=== PATIENT | male | born 1965 | race Caucasian/White ===

== ENCOUNTER 2017-02-05 22:13 | Emergency (ER) | payer OTHER ==
[2017-02-06] MEDS ORDERED: IPRATROPIUM-ALBUTEROL 3 ML NEB INHALATION STA (00:01)
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
--- NOTE | 2017-02-06 00:35 | XR ---
EXAM: XR Chest, 2 Views. CLINICAL HISTORY: Reason: Pain TECHNIQUE: Frontal and lateral views of the chest. COMPARISON: 09/03/15 FINDINGS: Lungs: Stable. No consolidation. Pleural space: Unremarkable. No pneumothorax. Heart: Heart size is stable and within normal limits. Mediastinum: Mediastinal contours are stable including mild aortic ectasia. Bones/joints: Bones are stable including multilevel degenerative changes. IMPRESSION: No new acute intrathoracic abnormality is seen.
[2017-02-06] MEDS ORDERED: methylPREDNISolone SOD SUCCI 125 MG/2 ML VIAL IV STA (00:44)
[2017-02-06] MEDS ORDERED: SODIUM CHLORIDE 0.9% 1,000 ML IV ONE (00:55)
[2017-02-06] MEDS ORDERED: PROMETHAZ-COD 6.25-10 MG/5 ML 5 ML CUP PO STA (00:57)
[2017-02-06 01:15] LABS: Basophils % (A) 1 %; CH 31.1; CHCM 34.9; Eosinophils # (A) 0.3 k/uL (0-0.7); Eosinophils % (A) 4 %; HCT 41.2 % (39.0-53.0); HGB 14.1 gm/dL (13.0-17.5); Luc # (Auto) 0.23; Luc % (Auto) 4; Lymphocytes # (A) 2.8 k/uL (1.0-4.8); Lymphocytes % (A) 43 %; MCH 30.6 pg (25.0-35.0); MCHC 34.2 g/dL (31.0-37.0); MCV 89.5 fL (80.0-100.0); Monocytes # (A) 0.4 k/uL (0-1.0); Monocytes % (A) 6 %; Neutrophils # (A) 2.8 k/uL (1.3-7.7); Neutrophils % (A) 43 %; RDW 12.9 % (11.5-15.5); WBC 6.7 k/uL (3.8-10.6); WBC (Perox) 6.22
[2017-02-06 01:29] LABS: Partial Thromboplastin Time 23.6 sec (22.0-30.0); Prothrombin Time 9.9 sec (9.0-12.0)
[2017-02-06 01:39] LABS: Anion Gap 8 mmol/L; Blood Urea Nitrogen 21 mg/dL (9-20); Calcium 9.8 mg/dL (8.4-10.2); Carbon Dioxide 27 mmol/L (22-30); Chloride 107 mmol/L (98-107); Glucose 95 mg/dL (74-99); Magnesium 2.1 mg/dL (1.6-2.3); Non-African American GFR(MDRD) >60 (>60 ml/min/1.73 sqM); Potassium 3.9 mmol/L (3.5-5.1); Sodium 142 mmol/L (137-145)
[2017-02-06 02:11] VITALS: BP 139/78; PULSE 78; RESP 20; TEMP 98.2
== END 2017-02-06 02:11 | disposition home or self-care (01) ==
LOC: EC 22:13
DX: R05 Cough (principal); R09.81 Nasal congestion; I10 Essential (primary) hypertension; Z79.899 Other long term (current) drug therapy
CPT/HCPCS: 36415; 94640; 85379; 80048; 83735; 85025; 85610; 85730; 87040; 71020; 99284; 96374; 96361; J2930

== ENCOUNTER 2017-10-24 10:03 | Day surgery (SDC) | payer OTHER ==
[2017-10-19 16:32] VITALS: BMI 32.3
[~2017-10-24 10:03] MED LIST: DEXAMETHASONE SOD PHOSPHATE 10 MG/ML 1 ML VIAL IV ONE; HEPARIN SODIUM,PORCINE 5,000 UNIT/ML 1 ML VIAL SQ ONE; HYDROmorphone 0.5 MG/0.5 ML SYRINGE IVP PRN; LACTATED RINGERS 1,000 ML IV SCH; LIDOCAINE 1% 20 ML VIAL (10MG/ML) FOR IV START INTRADERMA PRN; MIDAZOLAM 2 MG/2 ML VIAL IV PRN; ONDANSETRON 4 MG/2 ML VIAL IVP ONE; SCOPOLAMINE 1.5MG/72HR PATCH TRANSDERM ONE; ceFAZolin IN SWFI 2 GM/20 ML SYRINGE IVP ONE
[2017-10-24 10:13] VITALS: TEMP 97.5
[2017-10-24] MEDS ORDERED: LACTATED RINGERS 1,000 ML IV ONE ×3 (10:26→12:29)
--- NOTE | 2017-10-24 10:57 | P.GSHP ---
History of Present Illness H&P Date: 10/24/17 Chief Complaint: Incarcerated right inguinal hernia This a 52-year-old male who presents today for laparoscopic robotic-assisted repair of incarcerated right inguinal hernia. Patient's had a hernia for several years. He states the mass has gotten bigger in his groin. Past Medical History Past Medical History: Asthma, Hypertension, Sleep Apnea/CPAP/BIPAP Additional Past Medical History / Comment(s): AORTIC ANEURYSM, C-PAP MACHINE, ENVIRONMENTAL ALLERGIES., RIGHT INGUINAL HERNIA. History of Any Multi-Drug Resistant Organisms: None Reported Past Surgical History: Appendectomy, Hernia Repair, Orthopedic Surgery Additional Past Surgical History / Comment(s): ORIF RT ARM & REMOVAL OF HARDWARE.,EGD, COLONOSCOPY, HIATAL HERNIA -AUDREY. , UMBILICAL HERNIA, ABDOMINAL HERNIA Past Anesthesia/Blood Transfusion Reactions: Previous Problems w/ Anesthesia, Postoperative Nausea & Vomiting (PONV) Additional Past Anesthesia/Blood Transfusion Reaction / Comment(s): DIFFICULTY WAKING UP. Past Psychological History: No Psychological Hx Reported Smoking Status: Never smoker Past Alcohol Use History: Occasional Past Drug Use History: None Reported - Past Family History Sister(s) Family Medical History: Cancer Additional Family Medical History / Comment(s): BREAST CANCER Mother Family Medical History: Cancer Additional Family Medical History / Comment(s): BREAST Father Family Medical History: Cancer Medications and Allergies Home Medications Medication Instructions Recorded Confirmed Type Losartan/Hydrochlorothiazide 1 each PO DAILY 10/19/17 10/24/17 History [Losartan-Hctz 100-12.5 mg Tab] Multivitamins, Thera [Multivitamin 1 tab PO DAILY 10/19/17 10/19/17 History (formulary)] Twist Inhaler (Unknown Med) 1 dose INHALATION DAILY PRN 10/19/17 10/24/17 History Allergies Allergy/AdvReac Type Severity Reaction Status Date / Time No Known Allergies Allergy Verified 10/19/17 09:31 Surgical - Exam Vital Signs Temp Resp 97.5 F L 18 10/24/17 10:11 10/24/17 10:11 - General well developed, no distress - Eyes PERRL - ENT normal pinna - Neck no masses - Respiratory normal expansion - Cardiovascular Rhythm: regular - Abdomen Abdomen: soft, non tender Hernia: inguinal (Incarcerated right inguinal hernia) Assessment and Plan Assessment: Incarcerated right we will hernia. We'll perform laparoscopic robotic system repair.
[2017-10-24] MEDS ORDERED: MEPERIDINE 50 MG/ML SYRINGE ONE (11:26)
[2017-10-24] MEDS ORDERED: ePHEDrine SULFATE/0.9% NACL/PF 50 MG/5 ML SYRINGE IV ONE (11:26)
[2017-10-24] MEDS ORDERED: NEOSTIGMINE 1 MG/ML 10 ML VIAL ONE (11:26)
[2017-10-24] MEDS ORDERED: MIDAZOLAM 2 MG/2 ML VIAL ONE (11:26)
[2017-10-24] MEDS ORDERED: PROPOFOL 10 MG/ML 20 ML VIAL IV ONE (11:26)
[2017-10-24] MEDS ORDERED: GLYCOPYRROLATE 0.2 MG/ML 2 ML VIAL ONE (11:26)
[2017-10-24] MEDS ORDERED: SUCCINYLCHOLINE CHLORIDE 100 MG/5 ML SYR IV ONE (11:26)
[2017-10-24] MEDS ORDERED: LIDOCAINE 1% INJ 10MG/ML (20 ML MDV) ONE (11:26)
[2017-10-24] MEDS ORDERED: fentaNYL (PF) 50 MCG/ML 2 ML AMP ONE (11:26)
[2017-10-24] MEDS ORDERED: ROCURONIUM BROMIDE 10 MG/ML 10 ML VIAL IV ONE (11:26)
[2017-10-24] MEDS ORDERED: BUPIVACAINE-EPI 0.5%-1:200,000 10 ML VIAL SQ ONE (11:56)
--- NOTE | 2017-10-24 12:39 | P.OP ---
Date of Procedure: 10/24/17 Preoperative Diagnosis: Incarcerated right inguinal hernia Postoperative Diagnosis: Incarcerated right inguinal hernia Cord lipoma Procedure(s) Performed: Laparoscopic robotic system repair of incarcerated right inguinal hernia Excision of cord lipoma Anesthesia: ANDI Surgeon: Rios Sarkar Estimated Blood Loss (ml): 5 Pathology: other (Cord lipoma) Condition: stable Disposition: PACU Description of Procedure: The patient's placed on the operating table in the supine position. The patient received general anesthesia. The patient's abdomen was prepped and draped in usual sterile fashion. The skin was anesthetized 1% local Xylocaine at the incision sites. Using an 11 blade a skin incision was made at the umbilicus. The fascia was grasped with a Surya and then the peritoneal cavity was entered with the Veress needle. Position of the Veress needle was confirmed with a positive drop test. After adequate insufflation a 5 mm trocar was placed into the peritoneal cavity. The Laparoscope was placed the peritoneal cavity. And a robotic 8 mm trocar was placed in the right lateral position and then another 8 mm robotic trochars placed in the left lateral position. The original 5 mm trocar was exchanged for a 12 mm trocar. The patient was placed in reverse Trendelenburg and then the patient was docked to the robot. Next the peritoneum over top of the hernia was incised and then using blunt and sharp dissection and electrocautery the hernia sac was dissected free from the floor of the inguinal canal. The hernia sac was completely reduced into the peritoneal cavity. There was a cord lipoma. This was gently dissected off the cord. And excised. And then using the [employer] network engineer mesh the hernia was repaired. The peritoneum was then sutured with 20V lock suture. The patient was then undocked the robot. The needle was withdrawn from the peritoneal cavity. The cord lipoma was withdrawn. The umbilical trocar site was closed with 0 Ethibond suture. The skin was closed interrupted 3-0 Monocryl suture. Dermabond dressing was applied. Patient was sent to recovery in stable condition.
[2017-10-24 14:18] VITALS: RESP 18
[2017-10-24 15:20] VITALS: BP 142/89
[2017-10-24 15:21] VITALS: PULSE 101
== END 2017-10-24 15:59 | disposition home or self-care (01) ==
LOC: OR 10:03
PROVIDERS: ATTEND Surgery
DX: K40.30 Unilateral inguinal hernia, with obstruction, without gangrene, not specified as recurrent (principal); D17.6 Benign lipomatous neoplasm of spermatic cord; J45.909 Unspecified asthma, uncomplicated; I10 Essential (primary) hypertension; G47.33 Obstructive sleep apnea (adult) (pediatric); Z99.89 Dependence on other enabling machines and devices; I71.9 Aortic aneurysm of unspecified site, without rupture; Z79.899 Other long term (current) drug therapy
CPT/HCPCS: 49650; S2900; 88304

== ENCOUNTER 2018-05-31 17:36 | Emergency (ER) | payer OTHER ==
[2018-05-31] MEDS ORDERED: KETOROLAC 30 MG/ML 1 ML VIAL IM STA (18:41)
[2018-05-31] MEDS ORDERED: ORPHENADRINE 30 MG/ML 2 ML VIAL IM STA (18:41)
--- NOTE | 2018-05-31 18:42 | ED ---
General Adult HPI - General Chief complaint: Recheck/Abnormal Lab/Rx Stated complaint: hernia and back pain Time Seen by Provider: 05/31/18 18:22 Source: patient, RN notes reviewed Mode of arrival: ambulatory Limitations: no limitations - History of Present Illness Initial comments: This is a 52-year-old male who presents to the emergency department with multiple complaints. Patient states that 2 nights ago he was sitting on the edge of an unfilled hot tub. He states that he slipped and fell backwards hitting his lumbar spine on the seat within the hot tub. Patient feels as if he has bruised something on the inside. He denies any saddle paresthesias or loss of bladder or bowel function. Denies numbness or tingling. Patient states pain is positional, increasing with rotation and forward bending. Patient reports right inguinal hernia pain. He states that this has been going on since October. He states he had a hernia repair done by Dr. Sarkar and he has been in pain ever since. He states that the hernia sometimes pops out and is reducible. He states that he did speak with Dr. Sarkar about this who thought that it was not a problem at the time and told patient to return in 3 months for a checkup. He reports no acute changes with the hernia. Patient also complains of urinary frequency and dysuria for the past one month. Denies fevers or chills, chest pain or shortness of breath, abdominal pain, nausea or vomiting. - Related Data Home Medications Medication Instructions Recorded Confirmed Losartan/Hydrochlorothiazide 1 tab PO DAILY 10/19/17 05/31/18 [Losartan-Hctz 100-12.5 mg Tab] Albuterol Inhaler [Ventolin Hfa 2 puff INHALATION RT-Q6H PRN 05/31/18 05/31/18 Inhaler] Previous Rx's Medication Instructions Recorded HYDROcodone/APAP 5-325MG [[place] 5] 1 each PO Q6HR PRN #10 tab 05/31/18 Allergies Allergy/AdvReac Type Severity Reaction Status Date / Time No Known Allergies Allergy Verified 05/31/18 18:39 Review of Systems ROS Statement: Those systems with pertinent positive or pertinent negative responses have been documented in the HPI. ROS Other: All systems not noted in ROS Statement are negative. Past Medical History Past Medical History: Asthma, Hypertension, Sleep Apnea/CPAP/BIPAP Additional Past Medical History / Comment(s): AORTIC ANEURYSM, C-PAP MACHINE, ENVIRONMENTAL ALLERGIES., RIGHT INGUINAL HERNIA. History of Any Multi-Drug Resistant Organisms: None Reported Past Surgical History: Appendectomy, Hernia Repair, Orthopedic Surgery Additional Past Surgical History / Comment(s): ORIF RT ARM & REMOVAL OF HARDWARE.,EGD, COLONOSCOPY, HIATAL HERNIA -AUDREY. , UMBILICAL HERNIA, ABDOMINAL HERNIA, inguinal hernia Past Anesthesia/Blood Transfusion Reactions: Previous Problems w/ Anesthesia, Postoperative Nausea & Vomiting (PONV) Additional Past Anesthesia/Blood Transfusion Reaction / Comment(s): DIFFICULTY WAKING UP. Past Psychological History: No Psychological Hx Reported Smoking Status: Never smoker Past Alcohol Use History: Occasional Past Drug Use History: None Reported - Past Family History Sister(s) Family Medical History: Cancer Additional Family Medical History / Comment(s): BREAST CANCER Mother Family Medical History: Cancer Additional Family Medical History / Comment(s): BREAST Father Family Medical History: Cancer General Exam - General Exam Comments Initial Comments: General: Awake and alert, well-developed; in mild distress due to back pain. HEENT: Head atraumatic, normocephalic. Pupils are equal, round and reactive to light. Extraocular movements intact. Oropharynx moist without erythema or exudate. Neck: Supple. Normal ROM. Cardiovascular: Regular rate and rhythm. No murmurs, rubs or gallops. Chest symmetrical. Respiratory: Lungs clear to auscultation bilaterally. No wheezes, rales or rhonchi. Normal respiratory effort with no use of accessory muscles. Abdomen: Soft, non-tender, non-distended. No rigidity, rebound or guarding. Normal bowel sounds in all 4 quadrants. Musculoskeletal: Normal ROM, no tenderness bilateral upper and lower extremities. Ambulating normally. Skin: [place], warm and dry without rashes or lesions. Neurological: Alert and oriented x3. CN II-XII grossly intact. Speech is fluent and answers are appropriate. No focal neuro deficits. Psychiatric: Normal mood and affect. No overt signs of depression or anxiety noted. Limitations: no limitations Back exam: Present: normal inspection, full ROM. Absent: paraspinal tenderness , vertebral tenderness Course Vital Signs 05/31/18 18:04 Temperature 98.2 F Pulse Rate 76 Respiratory 18 Rate Blood Pressure 145/98 O2 Sat by Pulse 97 Oximetry Medical Decision Making - Medical Decision Making This is a 52-year-old male presents to the emergency department with multiple complaints. Patient complains of low back injury 2 days ago. He states that he fell backwards and landed on his lumbar spine. Patient states pain is positional, increasing with forward bending and twisting. There is no tenderness of the vertebra or paraspinal muscles. X-ray was obtained which revealed no acute abnormalities. Patient was given an injection of Toradol and Norflex 1 the emergency department. Denies saddle paresthesias or loss of bladder or bowel function. Denies numbness or tingling. He is neurovascularly intact. Patient also complains of increased urinary frequency and burning for the past one month. UA is completely within normal limits. No signs of infection. Patient also complains of a right inguinal hernia he had repaired in October by Dr. Sarkar. Patient states that he has had pain ever since. Reports hernia is reducible and this is examined. I educated patient that he needs to return to the emergency department if the hernia is unable to be reduced. Recommended following up with Dr. Sarkar regarding the chronic pain. Patient's vital signs are stable and he is in no acute distress. He will be discharged home at this time. - Lab Data Lab Results 05/31/18 Range/Units 18:17 Urine Color Yellow Urine Appearance Clear (Clear) Urine pH 6.5 (5.0-8.0) Ur Specific [place] 1.014 (1.001-1.035) Urine Protein Negative (Negative) Urine Glucose (UA) Negative (Negative) Urine Ketones Negative (Negative) Urine Blood Negative (Negative) Urine Nitrite Negative (Negative) Urine Bilirubin Negative (Negative) Urine Urobilinogen 2.0 (<2.0) mg/dL Ur Leukocyte Esterase Negative (Negative) - Radiology Data Radiology results: report reviewed, image reviewed Lumbar spine x-ray findings: Vertebra have normal alignment. Disc spaces are fairly normal. Posterior elements are intact. There is mild anterior spurring at L2 to 3. Sacral iliac joints are normal. Disposition Clinical Impression: Low back pain Disposition: HOME SELF-CARE Condition: Good Instructions: Acute Low Back Pain (ED) Additional Instructions: Please follow up with primary care provider within 1-2 days. Return to emergency department if symptoms should worsen or any concerns arise. Prescriptions: HYDROcodone/APAP 5-325MG [[place] 5] 1 each PO Q6HR PRN #10 tab PRN Reason: Pain Is patient prescribed a controlled substance at d/c from ED?: Yes When asked, does pt state using other controlled substances?: No If prescribed controlled substance>3 days was MAPS reviewed?: Prescribed <3 Days Referrals: Yogi Villa DO [Primary Care Provider] - 1-2 days Time of Disposition: 19:45
[2018-05-31 18:46] LABS: Appearance,Urine Clear (Clear); Bilirubin,Urine Negative (Negative); Blood,Urine Negative (Negative); Color,Urine Yellow; Glucose,Urine (UA) Negative (Negative); Ketones,Urine Negative (Negative); Leukocyte Esterase,Urine Negative (Negative); Nitrite,Urine Negative (Negative); PH, Urine 6.5 (5.0-8.0); Protein,Urine Negative (Negative); Specific Gravity,Urine 1.014 (1.001-1.035)
--- NOTE | 2018-05-31 18:56 | XR ---
EXAMINATION TYPE: XR lumbar spine 2 or 3V DATE OF EXAM: 05/31/2018 COMPARISON: NONE HISTORY: Back pain TECHNIQUE: 3 views FINDINGS: Vertebra have normal alignment. Disc spaces are fairly normal. Posterior elements are intac t. There is mild anterior spurring at L2-3. Sacroiliac joints are normal. IMPRESSION: Negative lumbar spine exam. Minimal spurring.
[2018-05-31 19:49] VITALS: BP 159/89; PULSE 82; RESP 17
[2018-05-31 19:57] VITALS: TEMP 98.6
== END 2018-05-31 19:56 | disposition home or self-care (01) ==
LOC: EC 17:36
DX: M54.5 Low back pain (principal); K40.90 Unilateral inguinal hernia, without obstruction or gangrene, not specified as recurrent; J45.909 Unspecified asthma, uncomplicated; I10 Essential (primary) hypertension; G47.30 Sleep apnea, unspecified; Z99.89 Dependence on other enabling machines and devices; Z90.49 Acquired absence of other specified parts of digestive tract; Z98.890 Other specified postprocedural states; Z87.19 Personal history of other diseases of the digestive system; Z79.899 Other long term (current) drug therapy; W01.198A Fall on same level from slipping, tripping and stumbling with subsequent striking against other object, initial encounter; Y92.89 Other specified places as the place of occurrence of the external cause
CPT/HCPCS: 81003; 72100; 99284; 96372 ×2; J2360; J1885

== ENCOUNTER → 2018-07-09 | Outpatient (CLI) | payer OTHER ==
--- NOTE | 2018-07-09 19:33 | CT ---
EXAMINATION TYPE: CT brain w con DATE OF EXAM: 07/09/2018 COMPARISON: CT brain September 03, 2015 HISTORY: Neoplasm of uncertain behavior CT DLP: 1130.08 mGycm Automated exposure control for dose reduction was used. CONTRAST: CT scan of the head is performed with IV Contrast, patient injected with 100 mL of Isovue 300. FINDINGS: There is no abnormal enhancing mass or midline shift identified. There is diffuse ventricular and sul ev prominence consistent with mild age-related cerebral atrophy. The globes are intact bilaterally. There is moderate mucosal thickening involving ethmoid sinuses bilaterally. There is dependent patchy opacification in the larger left sphenoid sinus. There is patchy opacification in the left maxillary sinus and near complete opacification of visualized portion of the right maxillary sinus. Dependent opacity is seen in the right frontal sinus. Overlying the frontal calvarium just right of midline and there is curvilinear well-defined fat density lesion measuring 3.1 x 0.8 cm axial image 28 by roughl y 2.0 cm craniocaudal dimension. No adjacent osseous destruction is seen. The lesion is enlarged from 2015 study. No suspicious nodularity or enhancement is present IMPRESSION: Right frontal scalp soft tissue lipoma enlarged from 2015 study. Acute or chronic paranas al sinus disease.
--- NOTE | 2018-07-09 21:54 | CT ---
EXAMINATION TYPE: CT abdomen pelvis w con DATE OF EXAM: 07/09/2018 COMPARISON: CT abdomen September 20, 2015 HISTORY: Hernia mesh migrating, abdominal pain-per patient CT DLP: 1967.93 mGycm, Automated Exposure Control for Dose Reduction was Utilized. CONTRAST: CT scan of the abdomen and pelvis is performed with oral and with IV Contrast, patient injected with 100 mL of Isovue 300. FINDINGS: LUNG BASES: Heart size is stable and mildly enlarged. Coronary artery calcification and/or stent to R CA distribution is redemonstrated. LIVER/GB: No significant abnormality is appreciated. PANCREAS: No significant abnormality is seen. SPLEEN: Tiny splenule anterior to the spleen is redemonstrated axial image 23. ADRENALS: No significant abnormality is seen. KIDNEYS: There is symmetric cortical medullary uptake and excretion of both kidneys without evidence of hydronephrosis bilaterally. BOWEL: Surgical changes epigastric region presumably from Zac fundoplication surgical repair is re demonstrated. Oral contrast reaches level of hepatic flexure. There is no suspicious small or large b owel dilatation. PROSTATE/SEMINAL VESICLES: No gross abnormality seen. LYMPH NODES: No greater than 1cm abdominal or pelvic lymph nodes are appreciated. A few prominent bu t subcentimeter mesenteric and retroperitoneal lymph nodes are present. OSSEOUS STRUCTURES: There is [id number] multilevel spurring in the thoracolumbar spine. Mild to moderate disc space narrowing with anterior spurring L2-L3 level is present. Facet arthropathy lower lumbar levels is seen. OTHER: There is small left inguinal hernia containing fat and tiny mesenteric vessels. There is large right-sided inguinal hernia containing mesenteric vessels and portions of bowel suspected sigmoid co rosette. Mild fat stranding into the hernia is noted. No suspicious proximal dilatation to suggest obstru ction is seen. IMPRESSION: 1. Large right inguinal hernia containing mesenteric vessels and portions of sigmoid colon. No signif icant obstruction is seen. Mild fat stranding near the neck of hernia could reflect products of alter ed vascular mechanics or inflammatory change. Smaller left inguinal hernia containing fat and tiny me senteric vessels is noted.
== END | disposition home or self-care (01) ==
LOC: RADCTMAIN 14:44
PROVIDERS: ATTEND Surgery Plastic and Reconstructive Surgery
DX: D17.0 Benign lipomatous neoplasm of skin and subcutaneous tissue of head, face and neck (principal); K40.90 Unilateral inguinal hernia, without obstruction or gangrene, not specified as recurrent
CPT/HCPCS: 70460; 74177; Q9967

== ENCOUNTER 2018-09-19 08:47 | Day surgery (SDC) | payer OTHER ==
[2018-09-17 16:41] VITALS: BMI 30.1
--- NOTE | 2018-09-19 08:46 | P.GSHP ---
History of Present Illness H&P Date: 09/19/18 CHIEF COMPLAINT: Colon screen HISTORY OF PRESENT ILLNESS: The patient is a 53-year-old male who presents for colon screen. Lower endoscopy was offered for further evaluation and management. PAST MEDICAL HISTORY: Please see list. PAST SURGICAL HISTORY: Please see list. MEDICATIONS: Please see list. ALLERGIES: Please see list. SOCIAL HISTORY: No illicit drug use FAMILY HISTORY: No reports of Crohn disease or ulcerative colitis. REVIEW OF ORGAN SYSTEMS: CONSTITUTIONAL: No reports of fevers or chills. PHYSICAL EXAM: VITAL SIGNS: Stable GENERAL: Well-developed pleasant in no acute distress. HEENT: No scleral icterus. Extraocular movements grossly intact. Moist buccal mucosa. NECK: Supple without lymphadenopathy. CHEST: Unlabored respirations. Equal bilateral excursions. CARDIOVASCULAR: Regular rate and rhythm. Distal 2+ pulses. ABDOMEN: Soft, nontender, nondistended. MUSCULOSKELETAL: No clubbing, cyanosis, or edema. ASSESSMENT: 1. Colon screen. PLAN: 1. Recommend proceeding with a lower endoscopy Past Medical History Past Medical History: Asthma, GERD/Reflux, Hypertension, Sleep Apnea/CPAP/BIPAP Additional Past Medical History / Comment(s): AORTIC ANEURYSM. USES C-PAP MACHINE. ENVIRONMENTAL ALLERGIES/ ASTHMA. RIGHT INGUINAL HERNIA. GERD RESOLVED AFTER SURGERY FOR HIATAL HERNIA. History of Any Multi-Drug Resistant Organisms: None Reported Past Surgical History: Appendectomy, Hernia Repair, Orthopedic Surgery Additional Past Surgical History / Comment(s): ORIF RT ARM & REMOVAL OF HARDWARE. EGD, COLONOSCOPY, HIATAL HERNIA -AUDREY. UMBILICAL HERNIA, ABDOMINAL HERNIA, Inguinal hernia. Past Anesthesia/Blood Transfusion Reactions: Previous Problems w/ Anesthesia, Family History of Problems w/ Anesthesia, Postoperative Nausea & Vomiting (PONV) Additional Past Anesthesia/Blood Transfusion Reaction / Comment(s): DIFFICULTY WAKING UP, OVER SEDATED. Smoking Status: Never smoker - Past Family History Sister(s) Family Medical History: Cancer Additional Family Medical History / Comment(s): BREAST CANCER Mother Family Medical History: Cancer Additional Family Medical History / Comment(s): BREAST Father Family Medical History: Cancer Medications and Allergies Home Medications Medication Instructions Recorded Confirmed Type Losartan/Hydrochlorothiazide 1 tab PO DAILY 10/19/17 09/17/18 History [Losartan-Hctz 100-12.5 mg Tab] Albuterol Inhaler [Ventolin Hfa 2 puff INHALATION RT-Q6H PRN 05/31/18 09/17/18 History Inhaler] Allergies Allergy/AdvReac Type Severity Reaction Status Date / Time No Known Allergies Allergy Verified 09/17/18 16:17
[~2018-09-19 08:47] MED LIST changes: -DEXAMETHASONE SOD PHOSPHATE 10 MG/ML 1 ML VIAL IV ONE; -HEPARIN SODIUM,PORCINE 5,000 UNIT/ML 1 ML VIAL SQ ONE; -HYDROmorphone 0.5 MG/0.5 ML SYRINGE IVP PRN; -MIDAZOLAM 2 MG/2 ML VIAL IV PRN; -ONDANSETRON 4 MG/2 ML VIAL IVP ONE; -SCOPOLAMINE 1.5MG/72HR PATCH TRANSDERM ONE; -ceFAZolin IN SWFI 2 GM/20 ML SYRINGE IVP ONE
[2018-09-19 09:18] VITALS: RESP 16; TEMP 97.3
[2018-09-19] MEDS ORDERED: hydrALAZINE HCL 20 MG/ML 1 ML VIAL IV ONE (09:31)
[2018-09-19] MEDS ORDERED: PROPOFOL 10 MG/ML 20 ML VIAL IV ONE (10:21)
--- NOTE | 2018-09-19 10:49 | P.PCN ---
Date of Procedure: 09/19/18 Description of Procedure: PREOPERATIVE DIAGNOSIS: Personal history of high-risk polyps POSTOPERATIVE DIAGNOSIS: Personal history of high-risk polyps Internal hemorrhoids OPERATION: Colonoscopy to the ileocecal valve and appendiceal orifice. SURGEON: Nikki Bravo MD. ANESTHESIA: MAC. INDICATIONS: The patient is a 53-year-old male who presents for colonoscopy screening. Last colonoscopy 5 years ago. Benefits and risks were described and informed consent was obtained. DESCRIPTION OF PROCEDURE: The patient had undergone Gatorade, MiraLAX and Dulcolax prep. He had been brought into the operating room and laid in the left lateral decubitus position. After adequate intravenous sedation, the rectum was examined with 2% lidocaine jelly. No external hemorrhoids were encountered. The rectal tone was within normal limits. No lesions were palpated in the rectal vault. An Olympus colonoscope was advanced until the ileocecal valve and appendiceal orifice were clearly viewed. He had a highly redundant sigmoid colon requiring abdominal wall pressure. The prep was excellent with clear visualization of the mucosal folds. The scope was removed with visualization of each mucosal fold. No scattered diverticulosis was encountered. No colonic polyps were found. No evidence of focal colitis was found. Retroflexion of the scope demonstrated grade 1 internal hemorrhoids without active bleeding or inflammation. The colon was desufflated. The patient had tolerated the procedure well. Withdrawal time was over 6 minutes. FINDINGS: Internal hemorrhoids, grade 1 No external prolapsed hemorrhoids. No arteriovenous malformations. No adenomatous polyps. No focal colitis. RECOMMENDATIONS: Repeat lower endoscopy 5 years, 2022 Plan - Discharge Summary New Discharge Prescriptions: No Action Losartan/Hydrochlorothiazide [Losartan-Hctz 100-12.5 mg Tab] 1 tab PO DAILY Albuterol Inhaler [Ventolin Hfa Inhaler] 2 puff INHALATION RT-Q6H PRN PRN Reason: Shortness Of Breath Discharge Medication List Losartan/Hydrochlorothiazide [Losartan-Hctz 100-12.5 mg Tab] 1 tab PO DAILY 01/31 [History] Albuterol Inhaler [Ventolin Hfa Inhaler] 2 puff INHALATION RT-Q6H PRN 05/31/18 [ History]
[2018-09-19 10:50] VITALS: PULSE 86
[2018-09-19 11:10] VITALS: BP 156/102
== END 2018-09-19 11:21 | disposition home or self-care (01) ==
LOC: ORWHC2ENDO 08:47
PROVIDERS: ATTEND Surgery Plastic and Reconstructive Surgery
DX: Z12.11 Encounter for screening for malignant neoplasm of colon (principal); K64.0 First degree hemorrhoids; Z86.010 Personal history of colon polyps; J45.909 Unspecified asthma, uncomplicated; I10 Essential (primary) hypertension; G47.30 Sleep apnea, unspecified; Z99.89 Dependence on other enabling machines and devices; Z79.899 Other long term (current) drug therapy
CPT/HCPCS: J0360; J2704; G0105

== ENCOUNTER 2018-10-18 11:54 | Day surgery (SDC) | payer OTHER ==
[2018-10-11 09:54] VITALS: BMI 29.9
[~2018-10-18 11:54] MED LIST changes: +DEXAMETHASONE SOD PHOSPHATE 10 MG/ML 1 ML VIAL IV ONE; +HEPARIN SODIUM,PORCINE 5,000 UNIT/ML 1 ML VIAL SQ ONE; +MIDAZOLAM (PF) 2 MG/2 ML VIAL IV PRN; +ceFAZolin IN SWFI 2 GM/20 ML SYRINGE IVP ONE; +fentaNYL (PF) 50 MCG/ML 2 ML AMP IV PRN
--- NOTE | 2018-10-18 12:03 | P.GSHP ---
History of Present Illness H&P Date: 10/18/18 CHIEF COMPLAINT: Inguinal hernia, bilateral HISTORY OF PRESENT ILLNESS: The patient is a 56-year-old male who presents with a history of swelling and pain along the groins. He's noted increased swelling including pain of the area. Now he presents for repair of his inguinal hernia. PAST MEDICAL HISTORY: Please see list. PAST SURGICAL HISTORY: Please see list. MEDICATIONS: Please see list. ALLERGIES: Please see list. SOCIAL HISTORY: No illicit drug use FAMILY HISTORY: No reports of Crohn disease or ulcerative colitis. REVIEW OF ORGAN SYSTEMS: CONSTITUTIONAL: No reports of fevers or chills. No reports of weight loss despite prior attempts. GI: Denies any blood in stools or constipation. PHYSICAL EXAM: VITAL SIGNS: Stable GENERAL: Well-developed pleasant male in no acute distress. HEENT: No scleral icterus. Extraocular movements grossly intact. Moist buccal mucosa. NECK: Supple without lymphadenopathy. CHEST: Unlabored respirations. Equal bilateral excursions. CARDIOVASCULAR: Regular rate and rhythm. Distal 2+ pulses. ABDOMEN: Soft, nondistended. No peritoneal signs. Palpable defect of the groin MUSCULOSKELETAL: No clubbing, cyanosis, or edema. ASSESSMENT: 1. History of right inguinal hernia. 2. Palpable defect, left groin. 3. Forehead tumor. 4. Right lower quadrant abdominal wall mass. PLAN: 1. Given his concern for recurrent hernias, which is getting large, a bilateral robotic assisted repair was described with mesh. 2. He does have an abdominal wall tumor, which maybe resected concurrently at the time of his procedure. Size of 5 x 4 cm was described. Time of recovery of at least 4 weeks was reviewed. 3. He does have a forehead mass, which maybe resected at another time. ADDENDUM: The patient presents with intermediate risks for complications, as this is a recurrent hernia. Past Medical History Past Medical History: Asthma, Hypertension, Sleep Apnea/CPAP/BIPAP Additional Past Medical History / Comment(s): STATES WAS TOLD IN PAST HAD AORTIC ANEURYSM, NONE SEEN ON RECENT CT SCAN, RIGHT INGUINAL HERNIA. NO LONGER HAS INHALER History of Any Multi-Drug Resistant Organisms: None Reported Past Surgical History: Appendectomy, Hernia Repair, Orthopedic Surgery Additional Past Surgical History / Comment(s): ORIF RT ARM & REMOVAL OF HARDWARE ,EGD, COLONOSCOPY, HIATAL HERNIA -AUDREY., UMBILICAL HERNIA, ABDOMINAL HERNIA, inguinal hernia Past Anesthesia/Blood Transfusion Reactions: Previous Problems w/ Anesthesia, Postoperative Nausea & Vomiting (PONV) Additional Past Anesthesia/Blood Transfusion Reaction / Comment(s): DIFFICULTY WAKING UP. Smoking Status: Never smoker - Past Family History Sister(s) Family Medical History: Cancer Additional Family Medical History / Comment(s): BREAST CANCER Mother Family Medical History: Cancer Additional Family Medical History / Comment(s): BREAST Father Family Medical History: Cancer Medications and Allergies Home Medications Medication Instructions Recorded Confirmed Type Losartan/Hydrochlorothiazide 1 tab PO DAILY 10/19/17 10/11/18 History [Losartan-Hctz 100-12.5 mg Tab] Allergies Allergy/AdvReac Type Severity Reaction Status Date / Time No Known Allergies Allergy Verified 10/11/18 09:49
[2018-10-18] MEDS ORDERED: hydrALAZINE HCL 20 MG/ML 1 ML VIAL IV ONE (13:01)
[2018-10-18] MEDS: ONDANSETRON 4 MG/2 ML VIAL IVP ONE ×2 (13:12→19:30)
[2018-10-18] MEDS ORDERED: LACTATED RINGERS 1,000 ML IV ONE (13:14)
[2018-10-18 13:27] VITALS: RESP 16
[2018-10-18] MEDS ORDERED: LIDOCAINE 1% INJ 10MG/ML (20 ML MDV) ONE (15:30)
[2018-10-18] MEDS ORDERED: fentaNYL (PF) 50 MCG/ML 2 ML AMP ONE (15:30)
[2018-10-18] MEDS ORDERED: PROPOFOL 10 MG/ML 20 ML VIAL IV ONE (15:30)
[2018-10-18] MEDS ORDERED: GLYCOPYRROLATE 0.2 MG/ML 2 ML VIAL ONE (15:30)
[2018-10-18] MEDS ORDERED: KETAMINE 10 MG/ML 20 ML VIAL ONE (15:30)
[2018-10-18] MEDS ORDERED: SUCCINYLCHOLINE CHLORIDE 100 MG/5 ML SYR IV ONE (15:30)
[2018-10-18] MEDS ORDERED: MIDAZOLAM 2 MG/2 ML VIAL ONE (15:30)
[2018-10-18] MEDS ORDERED: MORPHINE SULFATE 10 MG/ML SYRINGE ONE (15:30)
[2018-10-18] MEDS ORDERED: ROCURONIUM BROMIDE 10 MG/ML 10 ML VIAL IV ONE (15:30)
[2018-10-18] MEDS ORDERED: NEOSTIGMINE 1 MG/ML 10 ML VIAL ONE (15:30)
[2018-10-18] MEDS ORDERED: BUPIVACAIN-EPI 0.25%-1:200,000 30 ML VIAL SQ ONE (16:01)
--- NOTE | 2018-10-18 18:18 | P.OP ---
Date of Procedure: 10/18/18 Description of Procedure: Date of Procedure: 10/18/18 SURGEON: NIKKI BRAVO MD PREOPERATIVE DIAGNOSES: 1. Recurrent right inguinal hernia. 2. Previous history of umbilical hernia 3. Hypertensive heart disease 4. Asthma 5. Chronic obstructive pulmonary disease 6. Gastroesophageal reflux disease 7. Obstructive sleep apnea POSTOPERATIVE DIAGNOSES: 1. Recurrent right inguinal hernia with incarceration 2. Previous history of umbilical hernia 3. Hypertensive heart disease 4. Asthma 5. Chronic obstructive pulmonary disease 6. Gastroesophageal reflux disease 7. Obstructive sleep apnea OPERATION: 1. Robotic-assisted da Priya Xi laparoscopic repair of recurrent right inguinal hernia with mesh, 11.[address] ANESTHESIA: General with local anesthetic ESTIMATED BLOOD LOSS: 20 mL SPECIMENS REMOVED: Incarcerated right inguinal hernia sac COMPLICATIONS: None. Condition: stable Disposition: same day Operative Findings: 1. Recurrent right inguinal hernia with indirect component, defect over 4 cm in size 2. Previous mesh repair excised for excision of hernia sac extending to the scrotum 3. Port site hernia identified of the left lower quadrant from previous surgery INDICATIONS: The patient is a 53-year-old gentleman who presents with history of right groin pain. He had previous repair now with recurrence. Now presents for definitive surgical intervention. Laparoscopic versus open and robotic approaches were discussed. Benefits and risks including bleeding, infection, injury to the vas deferens as well as sterility and chronic groin pain were reviewed. Placement of mesh was also described. Informed consent was obtained. DESCRIPTION: In the preoperative area, the patient was marked with indelible marker along the inguinal hernia. The patient was brought to the operating room and initially laid in supine position. The abdomen had been prepped and draped in standard sterile fashion. Ioban draping was also placed. Prior to incision, a timeout protocol was confirmed with surgical team regarding patient's name including procedures to be performed and location along the right groin. Initial positioning for the robotic assisted ports were selected whereby 20 cm superior to the target anatomy, 0 degree 5 mm laparoscopic trocar entry was performed at the left upper quadrant. The abdomen was insufflated to 15 mmHg which he had tolerated well. Diagnostic laparoscopy demonstrated an indirect inguinal hernia along the right groin, over 4 cm in size. Next, along the epigastrium, 8 mm robot trocar was placed. An 8-mm robotic trocar was placed under direct visualization at the right upper quadrant. An 8 mm port was placed at the left upper quadrant. All trocars were positioned between 8 to 10-cm apart from each other. The [employer] XI robot was primed, draped, prepared for docking along the right side of the patient. I then went to the [employer] Xi console. The ophthalmic medical assistant was at bedside for exchange of the robot arms and equipment. No hernia was identified along the left groin. The right inguinal hernia sac was scarred along the medial superior aspect from his previous robotic inguinal hernia repair. Mesh was identified. Carefully, the hernia sac was evaginated whereby the peritoneum was scored using Endo scissors with cautery. Once completely reduced into the abdominal cavity, the peritoneal sac of the hernia was stripped along an indirect inguinal hernia. The sac was resected and then passed off for further pathological analysis. The size of the hernia defect was 4 cm with intraoperative films obtained. Extensive dissection was performed as the hernia sac extended to the scrotum. Using a 2-0 VLOC, the peritoneal defect of the right inguinal hernia site was closed using a running suture. The defect was found to be completely closed with complete reduction of the right inguinal hernia was confirmed. As an onlay, an 11.[address] mesh by [email or web address] was initially cut in half and entered into the abdominal cavity via the 8 mm trocar. The mesh was tacked to the pelvis using 2-0 VLOC 9-inch length sutures. The robot was undocked from the patient's bedside. I then rescrubbed into the case. Insufflation was released from the abdominal cavity and all instruments were removed from the abdominal cavity. The rest of incisions were reapproximated using 4-0 Monocryl in a running subcuticular fashion. Local anesthetic was placed along the incision including for a right groin block. Incisions were cleansed using dilute hydrogen peroxide. Liquid glue was applied to the skin. At the end of the procedure, the needle, sponge and instrument counts had been verified correct by the rn surgical. The patient had tolerated the procedure well and was taken to the postanesthesia care unit in stable condition. Plan - Discharge Summary New Discharge Prescriptions: New HYDROcodone/APAP 5-325MG [[place] 5-325] 1 tab PO Q4HR PRN 3 Days #18 tab PRN Reason: Pain Ibuprofen [Motrin] 600 mg PO Q8HR PRN #30 tab PRN Reason: Pain Tamsulosin [Flomax] 0.4 mg PO DAILY #5 cap.er.24h No Action Losartan/Hydrochlorothiazide [Losartan-Hctz 100-12.5 mg Tab] 1 tab PO DAILY Discharge Medication List Losartan/Hydrochlorothiazide [Losartan-Hctz 100-12.5 mg Tab] 1 tab PO DAILY 01/31 [History] HYDROcodone/APAP 5-325MG [[place] 5-325] 1 tab PO Q4HR PRN 3 Days #18 tab [Rx] Ibuprofen [Motrin] 600 mg PO Q8HR PRN #30 tab 10/18/18 [Rx] Tamsulosin [Flomax] 0.4 mg PO DAILY #5 cap.er.24h 10/18/18 [Rx] Follow up Appointment(s)/Referral(s): Nikki Bravo MD [STAFF PHYSICIAN] - 10/23/18 Patient Instructions/Handouts: *Surgery [facility] - (Anesthesia) Discharge Instructions Outpatient Surgery, Laparoscopic Herniorrhaphy (DC) Activity/Diet/Wound Care/Special Instructions: Strict no lifting over 4 pounds in 4 weeks. May shower. No bathtub soaks. Discharge Disposition: HOME SELF-CARE
[2018-10-18 18:19] VITALS: TEMP 97
[2018-10-18] MEDS ORDERED: TAMSULOSIN 0.4 MG CAP.ER.24H PO STA (18:23)
[2018-10-18 19:42] VITALS: BP 142/89; PULSE 70
== END 2018-10-18 20:16 | disposition home or self-care (01) ==
LOC: OR 11:54
PROVIDERS: ATTEND Surgery Plastic and Reconstructive Surgery
DX: K40.31 Unilateral inguinal hernia, with obstruction, without gangrene, recurrent (principal); G47.33 Obstructive sleep apnea (adult) (pediatric); I11.9 Hypertensive heart disease without heart failure; J44.9 Chronic obstructive pulmonary disease, unspecified; K21.9 Gastro-esophageal reflux disease without esophagitis; D49.2 Neoplasm of unspecified behavior of bone, soft tissue, and skin; Z79.899 Other long term (current) drug therapy; Z99.89 Dependence on other enabling machines and devices
CPT/HCPCS: 49651; 88302; C1781; J2250; J0360; J1644; J1100; J2710; J2270; J2405; J2001; J3010; J0330; J2704; J0690

== ENCOUNTER 2018-11-16 05:43 | Day surgery (SDC) | payer OTHER ==
[2018-11-14 11:17] VITALS: BMI 29.9
[~2018-11-16 05:43] MED LIST changes: -DEXAMETHASONE SOD PHOSPHATE 10 MG/ML 1 ML VIAL IV ONE; -HEPARIN SODIUM,PORCINE 5,000 UNIT/ML 1 ML VIAL SQ ONE; -LACTATED RINGERS 1,000 ML IV SCH; -LIDOCAINE 1% 20 ML VIAL (10MG/ML) FOR IV START INTRADERMA PRN; -MIDAZOLAM (PF) 2 MG/2 ML VIAL IV PRN; +Pre Op ABX Message 1 EACH MISC MISCELLANE ONE; -ceFAZolin IN SWFI 2 GM/20 ML SYRINGE IVP ONE; -fentaNYL (PF) 50 MCG/ML 2 ML AMP IV PRN
[2018-11-16] MEDS ORDERED: HYDROmorphone 0.5 MG/0.5 ML SYRINGE IVP PRN (05:56)
[2018-11-16] MEDS ORDERED: DEXAMETHASONE SOD PHOSPHATE 10 MG/ML 1 ML VIAL IV ONE (05:56)
[2018-11-16] MEDS ORDERED: LIDOCAINE 1% 20 ML VIAL (10MG/ML) FOR IV START INTRADERMA PRN (05:56)
[2018-11-16] MEDS ORDERED: SCOPOLAMINE 1.5MG/72HR PATCH TRANSDERM ONE (05:56)
[2018-11-16] MEDS ORDERED: ONDANSETRON 4 MG/2 ML VIAL IVP ONE (05:56)
[2018-11-16] MEDS ORDERED: LACTATED RINGERS 1,000 ML IV SCH (05:56)
[2018-11-16] MEDS ORDERED: MIDAZOLAM (PF) 2 MG/2 ML VIAL IV PRN (05:56)
[2018-11-16] MEDS ORDERED: ceFAZolin IN SWFI 2 GM/20 ML SYRINGE IVP ONE (05:56)
--- NOTE | 2018-11-16 06:00 | P.GSHP ---
History of Present Illness H&P Date: 11/16/18 CHIEF COMPLAINT: Forehead mass HISTORY OF PRESENT ILLNESS: The patient is a 53-year-old male who presents with a mass along his forehead for over 3+ years, over 4-cm in size. Now he presents for excision. PAST MEDICAL HISTORY: Please see list. PAST SURGICAL HISTORY: Please see list. MEDICATIONS: Please see list. ALLERGIES: Please see list. SOCIAL HISTORY: No illicit drug use FAMILY HISTORY: No reports of Crohn disease or ulcerative colitis. REVIEW OF ORGAN SYSTEMS: CONSTITUTIONAL: No reports of fevers or chills. PHYSICAL EXAM: VITAL SIGNS: Stable GENERAL: Well-developed pleasant in no acute distress. HEENT: No scleral icterus. Extraocular movements grossly intact. Moist buccal mucosa. NECK: Supple without lymphadenopathy. CHEST: Unlabored respirations. Equal bilateral excursions. CARDIOVASCULAR: Regular rate and rhythm. Distal 2+ pulses. ABDOMEN: Soft, nontender, nondistended. MUSCULOSKELETAL: No clubbing, cyanosis, or edema. SKIN: Mass along forehead, 4-cm, soft. ASSESSMENT: 1. Forehead mass. PLAN: 1. Recommend proceeding excision of forehead mass. Past Medical History Past Medical History: Asthma, Hypertension, Sleep Apnea/CPAP/BIPAP Additional Past Medical History / Comment(s): WAS TOLD IN PAST HAD AORTIC ANEURYSM, NONE SEEN ON RECENT CT SCAN. History of Any Multi-Drug Resistant Organisms: None Reported Past Surgical History: Appendectomy, Hernia Repair, Orthopedic Surgery Additional Past Surgical History / Comment(s): ORIF RT ARM & REMOVAL OF HARDWARE , EGD, COLONOSCOPY, HIATAL HERNIA -AUDREY, UMBILICAL HERNIA, ABDOMINAL HERNIA, inguinal hernia. Past Anesthesia/Blood Transfusion Reactions: Previous Problems w/ Anesthesia, Postoperative Nausea & Vomiting (PONV) Additional Past Anesthesia/Blood Transfusion Reaction / Comment(s): DIFFICULTY WAKING UP. Past Psychological History: No Psychological Hx Reported Smoking Status: Never smoker Past Alcohol Use History: Occasional Past Drug Use History: None Reported - Past Family History Sister(s) Family Medical History: Cancer Additional Family Medical History / Comment(s): BREAST CANCER Mother Family Medical History: Cancer Additional Family Medical History / Comment(s): BREAST Father Family Medical History: Cancer Medications and Allergies Home Medications Medication Instructions Recorded Confirmed Type Losartan/Hydrochlorothiazide 1 tab PO QAM 10/19/17 11/14/18 History [Losartan-Hctz 100-12.5 mg Tab] Allergies Allergy/AdvReac Type Severity Reaction Status Date / Time No Known Allergies Allergy Verified 11/14/18 11:18
[2018-11-16 06:28] VITALS: RESP 16
[2018-11-16] MEDS ORDERED: fentaNYL (PF) 50 MCG/ML 2 ML AMP ONE (07:03)
[2018-11-16] MEDS ORDERED: SUCCINYLCHOLINE CHLORIDE 100 MG/5 ML SYR IV ONE (07:03)
[2018-11-16] MEDS ORDERED: ePHEDrine SULFATE/0.9% NACL/PF 50 MG/5 ML SYRINGE IV ONE (07:03)
[2018-11-16] MEDS ORDERED: LIDOCAINE 1% INJ 10MG/ML (20 ML MDV) ONE (07:03)
[2018-11-16] MEDS ORDERED: MIDAZOLAM 2 MG/2 ML VIAL ONE (07:03)
[2018-11-16] MEDS ORDERED: PROPOFOL 10 MG/ML 20 ML VIAL IV ONE (07:03)
[2018-11-16] MEDS ORDERED: BUPIVACAIN-EPI 0.5%-1:200,000 30 ML VIAL SQ ONE (07:27)
[2018-11-16] MEDS ORDERED: LACTATED RINGERS 1,000 ML IV ONE (08:09)
[2018-11-16 08:39] VITALS: TEMP 97.3
--- NOTE | 2018-11-16 08:54 | P.OP ---
Date of Procedure: 11/16/18 Description of Procedure: SURGEON: NIKKI BRAVO MD FUNERAL DIRECTOR: NONE. PREOPERATIVE DIAGNOSES: 1. Forehead mass with recurrence, 4 cm 2. Hypertensive heart disease. POSTOPERATIVE DIAGNOSES: 1. Recurrent subfascial 4 cm forehead mass with recurrence 2. Hypertensive heart disease. Procedure(s) Performed: 1. Excision of deep subfascial tumor of the forehead, 4 cm 2. Intermediate closure of right forehead incision, 6 cm Anesthesia: GETA, local Estimated Blood Loss (ml): 40 Pathology: other (Forehead mass) Condition: stable Disposition: same day COMPLICATIONS: None. Operative Findings: 1. Sub-fascial forehead 4 cm mass, recurrent extending to the skull 2. Intermediate closure 6 cm transverse incision along for head 3. Pressure dressing placed using Coban 4. Dressing placed using Exofin tape and glue followed by Optifoam dressing cut to size. INDICATIONS: The patient is a 53 year-old male who presents with recurrence of forehead tumor excised over 3+ years ago. Surgical options, including excision was discussed. Benefits and risks were described. Informed consent was obtained. DESCRIPTION OF PROCEDURE: Patient was brought into the operating room, laid in supine position. After general induction, the forehead was prepped and draped in standard sterile fashion. A timeout protocol was confirmed with the surgical team regarding the patient's name including procedures to be performed. Preoperative medications was administered. Next, field block using local anesthetic was administered. The forehead mass was measured using a ruler with borders marked with indelible marker, over 6 cm in a transverse plane. Soft tissue skin flaps were developed inferiorly and superiorly after using #15 blade into the deep subcutaneous tissues to the fascia and periosteum of the skull. Using Adson's, the forehead mass was dissected circumferentially using Bovie cautery. The dissection was performed two fingerbreadths above the brow to avoid injury to neurovascular bundles. The mass was excised to the level of the fascia/periosteum. Hemostasis was checked with electro-Bovie cautery. The specimen was passed off and measured to be 4 cm. Next the wound was closed in layers using 3-0-Vicryl for the deep subcutaneous tissue followed by 4-0 Monocryl for the deep dermis in a running subcuticular fashion. The skin was cleansed with dilute hydrogen peroxide. Exofin tape and liquid glue was applied as another layer. Once dried Optifoam dressing was placed and covered with skin colored steri-strips were applied. A pressure dressing using Coban 4-inch was placed. At the end of the procedure, needle, sponge, and instrument count had been verified correct by the surgical services coordinator. The patient was taken to the postanesthesia care unit in stable condition. Plan - Discharge Summary Discharge Rx Participant: Yes New Discharge Prescriptions: New HYDROcodone/APAP 5-325MG [[place] 5-325] 1 tab PO Q6HR PRN 3 Days #12 tab PRN Reason: Pain No Action Losartan/Hydrochlorothiazide [Losartan-Hctz 100-12.5 mg Tab] 1 tab PO QAM Discharge Medication List Losartan/Hydrochlorothiazide [Losartan-Hctz 100-12.5 mg Tab] 1 tab PO QAM [History] HYDROcodone/APAP 5-325MG [[place] 5-325] 1 tab PO Q6HR PRN 3 Days #12 tab [Rx] Follow up Appointment(s)/Referral(s): Nikki Bravo MD [STAFF PHYSICIAN] - 11/20/18 Patient Instructions/Handouts: *[facility] - (Anesthesia) Discharge Instructions Outpatient Surgery, *[facility] - Scopalamine Patch Instructions Activity/Diet/Wound Care/Special Instructions: DO NOT REMOVE forehead dressing. Keep HEAD BAND on. SLEEP ON ELEVATED PILLOW AT LEAST 3. Expect bruising over forehead including eyes. This is to be expected. Do not wash hair. May sponge bath for face. MINIMIZE COUGHING OR SNEEZING OTHERWISE WILL HAVE MORE BLEEDING AND BRUISING Discharge Disposition: HOME SELF-CARE
[2018-11-16 09:20] VITALS: PULSE 75
[2018-11-16 09:37] VITALS: BP 163/101
== END 2018-11-16 09:49 | disposition home or self-care (01) ==
LOC: OR 05:43
PROVIDERS: ATTEND Surgery Plastic and Reconstructive Surgery
DX: R22.0 Localized swelling, mass and lump, head (principal); J45.909 Unspecified asthma, uncomplicated; I11.9 Hypertensive heart disease without heart failure; G47.30 Sleep apnea, unspecified; Z99.89 Dependence on other enabling machines and devices; Z79.899 Other long term (current) drug therapy
CPT/HCPCS: 88305; 21014; J2250; J1100; J2405; J2001; J3010; J0330; J2704; J0690; 88304

== ENCOUNTER → 2019-08-31 | Outpatient (CLI) | payer OTHER ==
--- NOTE | 2019-08-31 16:03 | CT ---
EXAMINATION TYPE: CT pelvis w con DATE OF EXAM: 08/31/2019 COMPARISON: CT abdomen pelvis dated 07/09/2018 HISTORY: RLQ pain. Hx multiple hernia repairs. Diverticulitis. CT DLP: 1069.80 mGycm Automated exposure control for dose reduction was used. CONTRAST: CT of the pelvis was performed with IV Contrast, patient injected with 100 mL of Isovue 300. 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 Minimal atherosclerosis. There is a recurrent right inguinal hernia containing fat and portions of the anterior urinary bladde r. The herniated portion of the urinary bladder extends approximately 6 cm into the inguinal canal an d displacing wall thickening with slight surrounding fat stranding. The left inguinal canal is also p atulous and fat-containing also containing few mesenteric vessels. Left lateral to the inguinal defec t on series 3 image 30 towards midline and on coronal series 7 image 17 there is a small 1.6 x 1.6 cm high density complex fluid collection that could represent a seroma from prior surgical repair. No c urrent inflammatory fat stranding surrounding this fluid collection. There is multifocal narrowing of the sigmoid colon, possibly colonic spasm. No evidence of obstructio n. No dilated small bowel. Moderate degenerative changes of the hips and mild of the lumbosacral junction. No adenopathy seen. IMPRESSION: 1. RECURRENT RIGHT INGUINAL HERNIA CONTAINING THE ANTERIOR RIGHT LATERAL PORTION OF THE URINARY BLADD ER. THE HERNIATED PORTION OF THE URINARY BLADDER DISPLAYS BOWEL WALL THICKENING AND SOME SURROUNDING INFLAMMATORY FAT STRANDING. 2. PATULOUS FAT-CONTAINING LEFT INGUINAL CANAL 3. MULTIFOCAL NARROWING OF THE SIGMOID COLON LIKELY REPRESENTS COLONIC SPASM. NO OBSTRUCTION SEEN. LI NE 4. 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
== END | disposition home or self-care (01) ==
LOC: RADCTMAIN 13:46
PROVIDERS: ATTEND Surgery Plastic and Reconstructive Surgery
DX: K40.91 Unilateral inguinal hernia, without obstruction or gangrene, recurrent (principal); N30.90 Cystitis, unspecified without hematuria; I72.3 Aneurysm of iliac artery; K56.699 Other intestinal obstruction unspecified as to partial versus complete obstruction
CPT/HCPCS: 72193; Q9967

== ENCOUNTER → 2019-09-19 | Outpatient (CLI) | payer OTHER | END | disposition home or self-care (01) | LOC: LABWHC1 14:59 | PROVIDERS: ATTEND Urology | DX: R97.20 Elevated prostate specific antigen [PSA] (principal) | CPT/HCPCS: 36415; 84153 ==

== ENCOUNTER → 2019-12-26 | Outpatient (CLI) | payer OTHER ==
[2019-12-26 11:15] LABS: Basophils # (A) 0.1 k/uL (0-0.2); Basophils % (A) 1 %; Eosinophils # (A) 0.4 k/uL (0-0.7); Eosinophils % (A) 7 %; HCT 41.6 % (39.0-53.0); HGB 14.4 gm/dL (13.0-17.5); Lymphocytes # (A) 2.2 k/uL (1.0-4.8); Lymphocytes % (A) 37 %; MCH 30.6 pg (25.0-35.0); MCHC 34.6 g/dL (31.0-37.0); MCV 88.6 fL (80.0-100.0); Mean Platelet Volume 6.6; Monocytes # (A) 0.5 k/uL (0-1.0); Monocytes % (A) 8 %; Neutrophils # (A) 2.6 k/uL (1.3-7.7); Neutrophils % (A) 45 %; Platelet Count 233 k/uL (150-450); RDW 12.4 % (11.5-15.5); WBC 5.8 k/uL (3.8-10.6)
[2019-12-26 11:27] LABS: African American GFR (CKD) >90 (>60 ml/min/1.73 sqM); Anion Gap 9 mmol/L; Blood Urea Nitrogen 20 mg/dL (9-20); Calcium 9.2 mg/dL (8.4-10.2); Carbon Dioxide 27 mmol/L (22-30); Chloride 103 mmol/L (98-107); Glucose 102 mg/dL (74-99); Non-African American GFR(CKD) >90 (>60 ml/min/1.73 sqM); Potassium 3.7 mmol/L (3.5-5.1); Sodium 139 mmol/L (137-145)
== END | disposition home or self-care (01) ==
LOC: LABPAT 10:08
PROVIDERS: ATTEND Urology
DX: Z01.818 Encounter for other preprocedural examination (principal); N32.89 Other specified disorders of bladder
CPT/HCPCS: 80048; 85025

== ENCOUNTER 2020-01-02 09:29 | Observation (INO) | payer OTHER ==
[2019-12-31 11:21] VITALS: BMI 31.4
[~2020-01-02 09:29] MED LIST changes: +DEXAMETHASONE SOD PHOSPHATE 10 MG/ML 1 ML VIAL IV ONE; +HYDROmorphone 0.5 MG/0.5 ML SYRINGE IVP PRN; +LIDOCAINE 1% (10MG/ML) FOR IV START INTRADERMA PRN; +METOCLOPRAMIDE 5 MG/ML 2 ML VIAL IVP PRN; +MIDAZOLAM 2 MG/2 ML VIAL IV PRN; +ONDANSETRON 4 MG/2 ML VIAL IVP ONE; +ONDANSETRON 4 MG/2 ML VIAL IVP PRN; -Pre Op ABX Message 1 EACH MISC MISCELLANE ONE
--- NOTE | 2020-01-02 09:31 | P.GSHP ---
History of Present Illness H&P Date: 01/02/20 Chief Complaint: bladder diverticulum and herniation into the right inguinal fossa The patient has long standing history of right groin pain and inguinal hernia repair. He underwent a CT scan that showed herniation of a bladder into the right inguinal canal. We discussed robotic approach to extract bladder herniation and diverticulum and repair of inguinal hernia. All risks and complications were explained to him including bleeding, infection, urine leak, recurrence etc - Constitutional Constitutional: Reports as per HPI - EENT Eyes: left as per HPI Ears, nose, mouth and throat: Reports as per HPI - Cardiovascular Cardiovascular: Reports as per HPI - Respiratory Respiratory: Reports as per HPI - Gastrointestinal Gastrointestinal: Reports as per HPI - Genitourinary (Male) Genitourinary: Reports as per HPI - Musculoskeletal Musculoskeletal: Reports as per HPI - Neurological Neurological: Reports as per HPI Past Medical History Past Medical History: Asthma, Hypertension, Sleep Apnea/CPAP/BIPAP Additional Past Medical History / Comment(s): WAS TOLD IN PAST HAD AORTIC ANEURYSM, NONE SEEN ON RECENT CT SCAN. Seasoning allergies History of Any Multi-Drug Resistant Organisms: None Reported Past Surgical History: Appendectomy, Hernia Repair, Orthopedic Surgery Additional Past Surgical History / Comment(s): ORIF RT ARM & REMOVAL OF HARDWARE, EGD, COLONOSCOPY, HIATAL HERNIA -AUDREY, UMBILICAL HERNIA, ABDOMINAL HERNIA, inguinal hernia. Has had multiple hernia repairs. Past Anesthesia/Blood Transfusion Reactions: Previous Problems w/ Anesthesia, Postoperative Nausea & Vomiting (PONV) Additional Past Anesthesia/Blood Transfusion Reaction / Comment(s): DIFFICULTY WAKING UP. Smoking Status: Never smoker - Past Family History Sister(s) Family Medical History: Cancer Additional Family Medical History / Comment(s): BREAST CANCER Mother Family Medical History: Cancer Additional Family Medical History / Comment(s): BREAST Father Family Medical History: Cancer Medications and Allergies Home Medications Medication Instructions Recorded Confirmed Type Ascorbic Acid [Vitamin C] 500 mg PO DAILY 12/31/19 12/31/19 History Cider Vinegar [Apple Cider Vinegar] 300 mg PO DAILY 12/31/19 12/31/19 History Hydrochlorothiazide [Hydrodiuril] 12.5 mg PO DAILY 12/31/19 12/31/19 History amLODIPine [Norvasc] 5 mg PO DAILY 12/31/19 12/31/19 History Allergies Allergy/AdvReac Type Severity Reaction Status Date / Time No Known Allergies Allergy Verified 12/31/19 11:40 Surgical - Exam - General well developed, well nourished, no distress - Eyes normal ocular movement, no icteric - Abdomen Abdomen: soft, non tender, no guarding, no rigid, no rebound - Genitourinary normal penis with no external lesions Results - Imaging CT scan - abdomen: report reviewed CT scan - pelvis: report reviewed Assessment and Plan (1) Bladder diverticulum Status: Acute Code(s): N32.3 - DIVERTICULUM OF BLADDER SNOMED Code(s): 373359248 (2) Inguinal hernia Status: Acute Code(s): K40.90 - UNIL INGUINAL HERNIA, W/O OBST OR GANGR, NOT SPCF RECUR SNOMED Code(s): 904057615 Plan: robotic extraction of bladder herniation and bilateral inguinal hernia repair Time with Patient: Greater than 30
[2020-01-02] MEDS: LACTATED RINGERS 1,000 ML IV SCH (09:59)
[2020-01-02] MEDS ORDERED: IPRATROPIUM-ALBUTEROL 3 ML NEB INHALATION STA (10:16)
[2020-01-02] MEDS ORDERED: HYDROCORTISONE SUCCINATE 100 MG/2 ML VIAL IV ONE (10:17)
[2020-01-02] MEDS ORDERED: fentaNYL (PF) 50 MCG/ML 2 ML AMP ONE (10:31)
[2020-01-02] MEDS ORDERED: LIDOCAINE 1% INJ 10MG/ML (20 ML MDV) ONE (10:31)
[2020-01-02] MEDS ORDERED: NEOSTIGMINE 1 MG/ML 10 ML VIAL ONE (10:31)
[2020-01-02] MEDS ORDERED: MIDAZOLAM 2 MG/2 ML VIAL ONE (10:31)
[2020-01-02] MEDS ORDERED: GLYCOPYRROLATE 0.2 MG/ML 2 ML VIAL ONE (10:31)
[2020-01-02] MEDS ORDERED: HYDROmorphone (PF) 1 MG/ML ONE (10:31)
[2020-01-02] MEDS ORDERED: ROCURONIUM BROMIDE 10 MG/ML 5 ML VIAL IV ONE (10:31)
[2020-01-02] MEDS ORDERED: PROPOFOL 10 MG/ML 20 ML VIAL IV ONE (10:31)
[2020-01-02] MEDS ORDERED: SUCCINYLCHOLINE CHLORIDE 100 MG/5 ML SYR IV ONE (10:31)
[2020-01-02] MEDS ORDERED: BUPIVACAINE (PF) 0.25% 30 ML VIAL SQ ONE ×2 (11:40→12:25)
--- NOTE | 2020-01-02 12:34 | P.OP ---
Date of Procedure: 01/02/20 Preoperative Diagnosis: Bladder Diverticulum right inguinal hernia Bladder herniation into inguinal hernia Postoperative Diagnosis: right indirect inguinal hernia bladder diverticulum extensive adhesions of bowel and omentum Procedure(s) Performed: #1 reduction of bladder diverticulum from inguinal canal. #2 extensive lysis of bowel and omental lesions. #3 repair of right inguinal hernia indirect with mesh Anesthesia: ANDI Surgeon: Edel Epps Estimated Blood Loss (ml): 20 IV fluids (ml): 1,100 Urine output (ml): 300 Pathology: none sent Condition: stable Disposition: PACU Indications for Procedure: The patient presented to the office with ballooning of the right inguinal canal during micturition. He also complained of right groin pain. Computed tomography scan showed herniation of bladder diverticulum into the inguinal canal. He was recommended to undergo reduction and excision off bladder diverticulum and repair of right indirect inguinal hernia Operative Findings: The patient was taken to the OR placed in supine position and administered general anesthesia. Parts were prepped and draped. A Veress needle was used to gain access to the peritoneum and a pneumoperitoneum was created to 20 mmHg. A 8 mm robotic port was placed supraumbilically and the 30 lens was introduced into the peritoneal. Inspection revealed extensive adhesions between the small bowel and ascending colon on the right and sigmoid colon and omentum on the left. 3 additional 8 mm robotic ports were placed according to the prostatectomy template and a 12 mm port and 5 mm billing and accounting staff assistant port were also placed. Using monopolar scissors and fenestrated bipolar and extensive lysis of adhesions was performed. This included releasing the distal small bowel and ascending colon from the right lateral wall and releasing omentum and adhesions between the descending and sigmoid colon and rectum on the left. 45 minutes were used in lysis of adhesions The mesh from the prior hernia repair was seen abdominally. The the peritoneum over the bladder was reflected and the bladder was reflected inferiorly to enter the space of Retzius. It was obvious that the right side of the bladder was entering the right inguinal canal. There were adhesions between the vas median umbilical ligament and the herniating bladder. The bladder was filled with 150 mL liters of saline to help in identification of the herniation. The diverticulum of bladder entering the inguinal canal was identified and using careful sharp and blunt dissection was delivered out of the inguinal canal. Bleeding points were correlated with with bipolar. Using careful dissection the entire bladder diverticulum was delivered into the abdominal cavity. Attention was then directed to the inguinal hernia. An oval mesh was used to cover the defect completely and the inferior aspect of the mesh was tacked to the pelvic bone and the psoas muscle lateral to the external iliac muscles with metal tacker. The lateral and superior aspect of the mesh was fixed to the abdominal wall with a 2-0 v loc suture on a CT-1 needle. At the end of the procedure the mesh was securely fastened to the lower abdominal wall to cover the hernial defect completely. The bladder was filled with saline to ensure no leak off saline. The pneumoperitoneum was desufflated and the incisions were closed with 3-0 Monocryl after infiltration of local anesthesia The patient was taken to recovery in stable condition Description of Procedure: The patient was taken to the OR placed in supine position and administered general anesthesia. Parts were prepped and draped. A Veress needle was used to gain access to the peritoneum and a pneumoperitoneum was created to 20 mmHg. A 8 mm robotic port was placed supraumbilically and the 30 lens was introduced into the peritoneal. Inspection revealed extensive adhesions between the small bowel and ascending colon on the right and sigmoid colon and omentum on the left. 3 additional 8 mm robotic ports were placed according to the prostatectomy template and a 12 mm port and 5 mm billing and accounting staff assistant port were also placed. Using monopolar scissors and fenestrated bipolar and extensive lysis of adhesions was performed. This included releasing the distal small bowel and ascending colon from the right lateral wall and releasing omentum and adhesions between the descending and sigmoid colon and rectum on the left. 45 minutes were used in lysis of adhesions The mesh from the prior hernia repair was seen abdominally. The the peritoneum over the bladder was reflected and the bladder was reflected inferiorly to enter the space of Retzius. It was obvious that the right side of the bladder was entering the right inguinal canal. There were adhesions between the vas median umbilical ligament and the herniating bladder. The bladder was filled with 150 mL liters of saline to help in identification of the herniation. The diverticulum of bladder entering the inguinal canal was identified and using careful sharp and blunt dissection was delivered out of the inguinal canal. Bleeding points were correlated with with bipolar. Using careful dissection the entire bladder diverticulum was delivered into the abdominal cavity. Attention was then directed to the inguinal hernia. An oval mesh was used to cover the defect completely and the inferior aspect of the mesh was tacked to the pelvic bone and the psoas muscle lateral to the external iliac muscles with metal tacker. The lateral and superior aspect of the mesh was fixed to the abdominal wall with a 2-0 v loc suture on a CT-1 needle. At the end of the procedure the mesh was securely fastened to the lower abdominal wall to cover the hernial defect completely. The bladder was filled with saline to ensure no leak off saline. The pneumoperitoneum was desufflated and the incisions were closed with 3-0 Monocryl after infiltration of local anesthesia The patient was taken to recovery in stable condition
[2020-01-02] MEDS ORDERED: hydrALAZINE HCL 20 MG/ML 1 ML VIAL IVP ONE (13:03)
[2020-01-02] MEDS ORDERED: KETOROLAC 30 MG/ML 1 ML VIAL IVP PRN (15:09)
[2020-01-02] MEDS: DEXTROSE 5%-0.45% NACL 1,000 ML IV SCH ×2 (17:15→22:58)
[2020-01-02] MEDS: HYDROmorphone 1 MG/ML 1 ML SYRINGE IVP PRN ×2 (17:30→22:59)
[2020-01-03] MEDS: LACTATED RINGERS 1,000 ML IV SCH (07:00)
[2020-01-03] MEDS: DEXTROSE 5%-0.45% NACL 1,000 ML IV SCH (07:29)
[2020-01-03 07:45] VITALS: BP 147/86; PULSE 85; RESP 16; TEMP 97.9
[2020-01-03] MEDS ORDERED: ONDANSETRON 4 MG/2 ML VIAL IVP PRN (07:47)
--- NOTE | 2020-01-03 10:16 | P.DS ---
Providers Date of admission: 01/03/20 00:25 Attending physician: Edel Epps Primary care physician: Stated None Hospital Course: The patient underwent robotically assisted laparoscopic lysis of adhesions and exploration of the right inguinal area on the date of admission. He was discovered to have herniation of the bladder into the right inguinal hernia and not a bladder diverticulum with herniation. The bladder was reduced from the hernia and the hernia defect was repaired. The patient remained comfortable overnight. His catheter was removed on the morning following surgery and he was discharged later in the day. Procedures: Robotically assisted laparoscopic reduction of bladder diverticulum from right inguinal canal, right inguinal hernia repair and lysis of adhesions 01/02/2020 Patient Condition at Discharge: Good Plan - Discharge Summary Discharge Rx Participant: No New Discharge Prescriptions: No Action Hydrochlorothiazide [Hydrodiuril] 12.5 mg PO DAILY Ascorbic Acid [Vitamin C] 500 mg PO DAILY amLODIPine [Norvasc] 5 mg PO DAILY Cider Vinegar [Apple Cider Vinegar] 300 mg PO DAILY Discharge Medication List Ascorbic Acid [Vitamin C] 500 mg PO DAILY 12/31/19 [History] Cider Vinegar [Apple Cider Vinegar] 300 mg PO DAILY 12/31/19 [History] Hydrochlorothiazide [Hydrodiuril] 12.5 mg PO DAILY 12/31/19 [History] amLODIPine [Norvasc] 5 mg PO DAILY 12/31/19 [History] Follow up Appointment(s)/Referral(s): Edel Epps MD [STAFF PHYSICIAN] - 10 Days
== END 2020-01-03 12:55 | disposition home or self-care (01) ==
LOC: OR 09:29 → 4SSUR 13:26 → OR 01-03 00:25
PROVIDERS: ADMIT Urology; ATTEND Urology
DX: K40.90 Unilateral inguinal hernia, without obstruction or gangrene, not specified as recurrent (principal); N32.3 Diverticulum of bladder; K66.0 Peritoneal adhesions (postprocedural) (postinfection); J45.909 Unspecified asthma, uncomplicated; I10 Essential (primary) hypertension; G47.33 Obstructive sleep apnea (adult) (pediatric); Z99.89 Dependence on other enabling machines and devices; I71.9 Aortic aneurysm of unspecified site, without rupture; Z98.890 Other specified postprocedural states; Z80.3 Family history of malignant neoplasm of breast; Z80.9 Family history of malignant neoplasm, unspecified; Z79.1 Long term (current) use of non-steroidal anti-inflammatories (NSAID); Z79.899 Other long term (current) drug therapy
CPT/HCPCS: 49329; 49650; S2900; 86850; 86900; 86901; 94640; 94760

== ENCOUNTER 2020-01-04 12:52 | Emergency (ER) | payer OTHER ==
[2020-01-04] MEDS ORDERED: IPRATROPIUM-ALBUTEROL 3 ML NEB INHALATION STA (13:05)
--- NOTE | 2020-01-04 13:16 | ED ---
URI HPI - General Chief Complaint: Upper Respiratory Infection Stated Complaint: cough, post surgical problem Time Seen by Provider: 01/04/20 13:01 Source: patient, RN notes reviewed Mode of arrival: ambulatory Limitations: no limitations - History of Present Illness Initial Comments: This is a 54-year-old male with a history of surgical evaluation of a bladder diverticula and bilaterally no hernias 2 days ago who presents with complaints of the onset of coughing just after the surgery. He had a persistent cough since then. He did have a low-grade fever this morning told to started this morning. Is a slight runny nose he states no earaches he states his ear she'll return to the chronic bronchitis he gets a very signs are in the year. 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 No chest pain he does have postsurgical pain but no other complaints or modifying factors at this time. He is not coughing up much in way of any phlegm at this time. MD Complaint: fever, cough - Related Data Home Medications Medication Instructions Recorded Confirmed Hydrochlorothiazide [Hydrodiuril] 12.5 mg PO DAILY 12/31/19 01/04/20 amLODIPine [Norvasc] 5 mg PO DAILY 12/31/19 01/04/20 Ibuprofen [Motrin] 800 mg PO Q8H PRN 01/04/20 01/04/20 Previous Rx's Medication Instructions Recorded Albuterol Inhaler [Ventolin Hfa 2 puff INHALATION Q6HR PRN #1 01/04/20 Inhaler] inhaler Amoxic-Pot Clav 875-125Mg 1 tab PO BID 10 Days #20 tab 01/04/20 [Augmentin 875-125] Oseltamivir [Tamiflu] 75 mg PO Q12HR #10 cap 01/04/20 predniSONE [Deltasone] 20 mg PO BID #10 tab 01/04/20 Allergies Allergy/AdvReac Type Severity Reaction Status Date / Time No Known Allergies Allergy Verified 01/04/20 13:32 Review of Systems ROS Statement: Those systems with pertinent positive or pertinent negative responses have been documented in the HPI. ROS Other: All systems not noted in ROS Statement are negative. Past Medical History Past Medical History: Asthma, Hypertension, Sleep Apnea/CPAP/BIPAP Additional Past Medical History / Comment(s): WAS TOLD IN PAST HAD AORTIC ANEURYSM, NONE SEEN ON RECENT CT SCAN. Seasoning allergies History of Any Multi-Drug Resistant Organisms: None Reported Past Surgical History: Appendectomy, Hernia Repair, Orthopedic Surgery Additional Past Surgical History / Comment(s): ORIF RT ARM & REMOVAL OF HARDWARE, EGD, COLONOSCOPY, HIATAL HERNIA -AUDREY, UMBILICAL HERNIA, ABDOMINAL HERNIA, inguinal hernia. Has had multiple hernia repairs. Past Anesthesia/Blood Transfusion Reactions: Previous Problems w/ Anesthesia, Postoperative Nausea & Vomiting (PONV) Additional Past Anesthesia/Blood Transfusion Reaction / Comment(s): DIFFICULTY WAKING UP. Past Psychological History: No Psychological Hx Reported Smoking Status: Never smoker Past Alcohol Use History: Occasional Past Drug Use History: None Reported - Past Family History Sister(s) Family Medical History: Cancer Additional Family Medical History / Comment(s): BREAST CANCER Mother Family Medical History: Cancer Additional Family Medical History / Comment(s): BREAST Father Family Medical History: Cancer General Exam - General Exam Comments Initial Comments: This is a well-developed well-nourished awake alert oriented 3 male Limitations: no limitations General appearance: alert, anxious Head exam: Present: atraumatic, normocephalic, normal inspection Eye exam: Present: normal appearance, PERRL, EOMI. Absent: scleral icterus, conjunctival injection, periorbital swelling ENT exam: Present: other (Some bogginess mucosa. TMs are intact oropharynx is mildly hyperemic no exudates.) Neck exam: Present: normal inspection, full ROM, other (No stridor JVD or bruits) Respiratory exam: Present: decreased breath sounds, other (Scattered wheezes) Cardiovascular Exam: Present: normal rhythm, tachycardia Extremities exam: Present: normal inspection Back exam: Present: full ROM Neurological exam: Present: alert, oriented X3, CN II-XII intact Psychiatric exam: Present: normal affect, normal mood Skin exam: Present: warm, dry, intact, normal color. Absent: rash Course Vital Signs 01/04/20 01/04/20 01/04/20 12:54 13:19 13:27 Temperature 100.3 F H Pulse Rate 108 H 100 99 Respiratory 18 Rate Blood Pressure 146/94 O2 Sat by Pulse 97 Oximetry - Reevaluation(s) Reevaluation #1: 01/04/20 13:49 Reevaluation the patient has the last treatment reveals increased aeration. Patient still has coughing. Medical Decision Making - Medical Decision Making Patient did get improvement after the above treatment this patient states that this is very similar to his multiple recurrences of chronic bronchitis. The fevers joint tenderness not usual. The concern is for aspiration 2 days postoperatively. After long discussion with the patient he will be discharged with prescription for oral antibiotics as well as a course of steroids and a inhaler treatment. No definite contact with any one with Covid- 19 , he will maintain due diligence and precautions - Radiology Data Radiology results: report reviewed (I did review the imaging and report there is no evidence of overt infiltrate with poor respiratory effort. Evidence of atelectasis noted.), image reviewed Disposition Clinical Impression: Bronchitis, Acute bronchospasm, Febrile illness, acute Disposition: HOME SELF-CARE Condition: Good Additional Instructions: Prescription sent to your local [facility] pharmacy Prescriptions: Amoxic-Pot Clav 875-125Mg [Augmentin 875-125] 1 tab PO BID 10 Days #20 tab predniSONE [Deltasone] 20 mg PO BID #10 tab Oseltamivir [Tamiflu] 75 mg PO Q12HR #10 cap Albuterol Inhaler [Ventolin Hfa Inhaler] 2 puff INHALATION Q6HR PRN #1 inhaler PRN Reason: Dyspnea Is patient prescribed a controlled substance at d/c from ED?: No Referrals: None,Stated [REFERRING] - 1-2 days
--- NOTE | 2020-01-04 13:23 | XR ---
EXAMINATION TYPE: XR chest 2V DATE OF EXAM: 01/04/2020 HISTORY: Cough. REFERENCE: Previous study dated 02/06/2017. FINDINGS: Patient has taken a relatively poor inspiration. There is some atelectatic change present a t the lung bases. Heart size is upper limits of normal. Pleural spaces are clear IMPRESSION: STUDY LIMITED BY POOR INSPIRATION DEMONSTRATES BIBASILAR AREAS OF PLATELIKE ATELECTASIS.
[2020-01-04] MEDS ORDERED: predniSONE 50 MG TAB PO STA (13:42)
[2020-01-04] MEDS ORDERED: AMOXIC-POT CLAV 875-125MG 1 EACH TAB PO STA (13:48)
[2020-01-04] MEDS ORDERED: BENZONATATE 100 MG CAP PO STA (14:05)
--- NOTE | 2020-01-04 14:07 | ED ---
Medical Decision Making - Medical Decision Making Patient will be additionally started on Tessalon for his cough. Disposition Clinical Impression: Bronchitis, Acute bronchospasm, Febrile illness, acute Disposition: HOME SELF-CARE Condition: Good Additional Instructions: [facility] to [facility] Prescriptions: Amoxic-Pot Clav 875-125Mg [Augmentin 875-125] 1 tab PO BID 10 Days #20 tab predniSONE [Deltasone] 20 mg PO BID #10 tab Oseltamivir [Tamiflu] 75 mg PO Q12HR #10 cap Benzonatate [Tessalon Perles] 200 mg PO TID PRN #21 capsule PRN Reason: Cough Albuterol Inhaler [Ventolin Hfa Inhaler] 2 puff INHALATION Q6HR PRN #1 inhaler PRN Reason: Dyspnea Is patient prescribed a controlled substance at d/c from ED?: No Referrals: None,Stated [REFERRING] - 1-2 days
[2020-01-04 14:11] VITALS: BP 109/72; PULSE 103; RESP 20; TEMP 100.6
== END 2020-01-04 14:20 | disposition home or self-care (01) ==
LOC: EC 12:52
DX: J40 Bronchitis, not specified as acute or chronic (principal); J98.01 Acute bronchospasm; I10 Essential (primary) hypertension; G47.30 Sleep apnea, unspecified; Z79.899 Other long term (current) drug therapy; Z99.89 Dependence on other enabling machines and devices
CPT/HCPCS: 94640; 71046; 99283; J7512

== ENCOUNTER 2020-03-08 11:31 | Emergency (ER) | payer OTHER ==
[2020-03-08 11:35] VITALS: RESP 18; TEMP 98.3
[2020-03-08 12:10] LABS: Basophils % (A) 1 %; Eosinophils # (A) 0.3 k/uL (0-0.7); Eosinophils % (A) 4 %; HCT 43.1 % (39.0-53.0); HGB 13.8 gm/dL (13.0-17.5); Lymphocytes # (A) 2.1 k/uL (1.0-4.8); Lymphocytes % (A) 27 %; MCH 29.3 pg (25.0-35.0); MCHC 32.1 g/dL (31.0-37.0); MCV 91.2 fL (80.0-100.0); Mean Platelet Volume 6.5; Monocytes # (A) 0.5 k/uL (0-1.0); Monocytes % (A) 7 %; Neutrophils # (A) 4.6 k/uL (1.3-7.7); Neutrophils % (A) 60 %; Platelet Count 240 k/uL (150-450); RBC 4.73 m/uL (4.30-5.90); RDW 13.1 % (11.5-15.5); WBC 7.7 k/uL (3.8-10.6)
[2020-03-08 12:13] LABS: Appearance,Urine Clear (Clear); Bilirubin,Urine Negative (Negative); Blood,Urine Small (Negative); Color,Urine Yellow; Glucose,Urine (UA) Negative (Negative); Hyaline Casts,Urine 1 /lpf (0-2); Ketones,Urine Negative (Negative); Leukocyte Esterase,Urine Negative (Negative); Mucus,Urine Moderate /hpf; Nitrite,Urine Negative (Negative); PH, Urine 6.5 (5.0-8.0); Protein,Urine Trace (Negative); RBC,Urine 15 /hpf (0-5); Specific Gravity,Urine 1.022 (1.001-1.035); WBC,Urine 2 /hpf (0-5)
[2020-03-08 12:14] LABS: ALT 26 U/L (4-49); AST 32 U/L (17-59); African American GFR (CKD) >90 (>60 ml/min/1.73 sqM); Alkaline Phosphatase 58 U/L (38-126); Anion Gap 8 mmol/L; Blood Urea Nitrogen 19 mg/dL (9-20); Calcium 8.8 mg/dL (8.4-10.2); Carbon Dioxide 21 mmol/L (22-30); Chloride 108 mmol/L (98-107); Glucose 116 mg/dL (74-99); Non-African American GFR(CKD) >90 (>60 ml/min/1.73 sqM); Potassium 3.6 mmol/L (3.5-5.1); Sodium 137 mmol/L (137-145); Total Bilirubin 0.5 mg/dL (0.2-1.3); Total Protein 7.2 g/dL (6.3-8.2)
[2020-03-08] MEDS ORDERED: MORPHINE SULFATE 4 MG/ML SYRINGE IVP STA (13:01)
--- NOTE | 2020-03-08 13:28 | CT ---
EXAMINATION TYPE: CT abdomen pelvis w con DATE OF EXAM: 03/08/2020 COMPARISON: 4 HISTORY: Rt flank pain, history of recent hernia repair. CT DLP: 1801.2 mGycm Automated exposure control for dose reduction was used. TECHNIQUE: Helical acquisition of images was performed from the lung bases through the pelvis. CONTRAST: Performed without Oral Contrast and with IV Contrast, patient injected with 100 mL of Isovue 300. FINDINGS: LUNG BASES: Bibasilar subsegmental dependent atelectasis. Coronary artery stent versus calcification. Retroareolar probable bilateral gynecomastia. Postsurgical change of a prior hiatal hernia repair. LIVER/GB: No significant abnormality is appreciated. PANCREAS: No significant abnormality is seen. SPLEEN: No significant abnormality is seen. Small splenule anterior to the inaja spleen on image 31. ADRENALS: No nodularity or thickening. KIDNEYS: Kidneys enhance and excrete symmetrically without hydronephrosis. FREE AIR: No free air is visualized. ADENOPATHY: No greater than 1 cm short axis lymph node in the abdomen or pelvis. REPRODUCTIVE ORGANS: Prostate gland appears slightly heterogenous and prominent size. URINARY BLADDER: Incompletely distended and suboptimally evaluated. OSSEOUS STRUCTURES: Moderate multilevel degenerative change of the spine. BOWEL: No dilated large or small bowel seen. OTHER: Although the right inguinal hernia no longer contains portions of the urinary bladder there is high density internally and surrounding fat. Residual hernia is possible. High density could represe nt blood products and hematoma. This is also seen surrounding a mesh placed in the right low pelvis s een on image 89 with minimal surrounding inflammatory fat stranding. Posterior to this there is a 2.1 x 1.7 cm fluid collection along the pelvic sidewall marked on image 90. Surrounding inflammatory change could be postsurgical. This may represent a developing abscess or postsurgical seroma. Small left inguinal hernia remains. IMPRESSION: Findings in the right inguinal region could be postsurgical and related to postsurgical inflammatory change, blood products and/or hematoma or residual hernia. Postsurgical fluid collection along the ri ght pelvic sidewall may represent a small seroma or developing abscess.
--- NOTE | 2020-03-08 14:01 | ED ---
Male Urogenital HPI <Kp De Leon - Last Filed: 03/08/20 19:05> - General Source: patient Mode of arrival: ambulatory Limitations: no limitations <Mariajose Abraham - Last Filed: 03/08/20 19:26> - General Chief complaint: Urogenital Stated complaint: Right sided flank pain Time Seen by Provider: 03/08/20 11:38 - History of Present Illness Initial comments: 54-year-old male 2 months status post right inguinal hernia repair presenting today for chief complaint of increasing right groin pain and right low back pain and hematuira. (Mariajose Abraham) - Related Data Home Medications Medication Instructions Recorded Confirmed Hydrochlorothiazide [Hydrodiuril] 12.5 mg PO DAILY 12/31/19 01/04/20 amLODIPine [Norvasc] 5 mg PO DAILY 12/31/19 01/04/20 Ibuprofen 800 mg PO Q8H 01/04/20 01/04/20 Previous Rx's Medication Instructions Recorded Albuterol Inhaler (Mhu) [Ventolin 2 puff INHALATION Q6HR PRN #1 01/04/20 Hfa Inhaler (Mhu)] inhaler Amoxic-Pot Clav 875-125Mg 1 tab PO BID 10 Days #20 tab 01/04/20 [Augmentin 875-125] Benzonatate [Tessalon Perles] 200 mg PO TID PRN #21 capsule 01/04/20 Oseltamivir [Tamiflu] 75 mg PO Q12HR #10 cap 01/04/20 predniSONE [Deltasone] 20 mg PO BID #10 tab 01/04/20 Allergies Allergy/AdvReac Type Severity Reaction Status Date / Time No Known Allergies Allergy Verified 03/08/20 11:35 Review of Systems ROS Other: All systems not noted in ROS Statement are negative. <Kp De Leon - Last Filed: 03/08/20 19:05> ROS Other: All systems not noted in ROS Statement are negative. <Mariajose Abraham - Last Filed: 03/08/20 19:26> ROS Statement: Those systems with pertinent positive or pertinent negative responses have been documented in the HPI. Past Medical History Past Medical History: Asthma, Hypertension, Sleep Apnea/CPAP/BIPAP Additional Past Medical History / Comment(s): WAS TOLD IN PAST HAD AORTIC ANEURYSM, NONE SEEN ON RECENT CT SCAN. Seasoning allergies History of Any Multi-Drug Resistant Organisms: None Reported Past Surgical History: Appendectomy, Hernia Repair, Orthopedic Surgery Additional Past Surgical History / Comment(s): ORIF RT ARM & REMOVAL OF HARDWARE, EGD, COLONOSCOPY, HIATAL HERNIA -AUDREY, UMBILICAL HERNIA, ABDOMINAL HERNIA, inguinal hernia. Has had multiple hernia repairs. Past Anesthesia/Blood Transfusion Reactions: Previous Problems w/ Anesthesia, Postoperative Nausea & Vomiting (PONV) Additional Past Anesthesia/Blood Transfusion Reaction / Comment(s): DIFFICULTY WAKING UP. Past Psychological History: No Psychological Hx Reported Smoking Status: Never smoker Past Alcohol Use History: Occasional Past Drug Use History: None Reported - Past Family History Sister(s) Family Medical History: Cancer Additional Family Medical History / Comment(s): BREAST CANCER Mother Family Medical History: Cancer Additional Family Medical History / Comment(s): BREAST Father Family Medical History: Cancer <Mariajose Abraham - Last Filed: 03/08/20 19:26> General Exam Limitations: no limitations <Mariajose Abraham - Last Filed: 03/08/20 19:26> Course <Kp De Leon - Last Filed: 03/08/20 19:05> Vital Signs 03/08/20 11:32 Temperature 98.3 F Pulse Rate 97 Respiratory 18 Rate Blood Pressure 143/98 O2 Sat by Pulse 100 Oximetry - Reevaluation(s) Reevaluation #1: 03/08/20 19:05 Following repeat computed tomography scan case was again discussed with Dr. Alvarenga, previously Dr. Rico had spoke with him regarding the original computed tomography scan. He does not have immediate concern at this time and would like to follow-up with the patient this week. Alternately patient can also follow- up with his surgeon who now works out of [place], Dr. Epps. Patient was reevaluated by myself, Dr. De Leon. Patient resting comfortably in bed. Patient states his hernia region has been swollen since 2 days after surgery, proximal he several weeks ago. Patient states he has had right lower back discomfort also since that time, proximal he 7 weeks. Patient states what brought him in today was hematuria. Patient states it seems to be decreasing. Patient is advised to follow-up with urologist regarding this and hematuria as well. Patient will be placed on antibiotics. (Kp De Leon) Medical Decision Making - Lab Data Result diagrams: 03/08/20 11:57 03/08/20 11:57 <Kp De Leon - Last Filed: 03/08/20 19:05> - Lab Data Result diagrams: 03/08/20 11:57 03/08/20 11:57 <JaradMariajose L - Last Filed: 03/08/20 19:26> - Lab Data Lab Results 03/08/20 03/08/20 03/08/20 Range/Units 11:57 11:57 12:05 WBC 7.7 (3.8-10.6) k/uL RBC 4.73 (4.30-5.90) m/uL Hgb 13.8 (13.0-17.5) gm/dL Hct 43.1 (39.0-53.0) % MCV 91.2 (80.0-100.0) fL MCH 29.3 (25.0-35.0) pg MCHC 32.1 (31.0-37.0) g/dL RDW 13.1 (11.5-15.5) % Plt Count 240 (150-450) k/uL Neutrophils % 60 % Lymphocytes % 27 % Monocytes % 7 % Eosinophils % 4 % Basophils % 1 % Neutrophils # 4.6 (1.3-7.7) k/uL Lymphocytes # 2.1 (1.0-4.8) k/uL Monocytes # 0.5 (0-1.0) k/uL Eosinophils # 0.3 (0-0.7) k/uL Basophils # 0.0 (0-0.2) k/uL Sodium 137 (137-145) mmol/L Potassium 3.6 (3.5-5.1) mmol/L Chloride 108 H (98-107) mmol/L Carbon Dioxide 21 L (22-30) mmol/L Anion Gap 8 mmol/L BUN 19 (9-20) mg/dL Creatinine 0.70 (0.66-1.25) mg/dL Est GFR (CKD-EPI)AfAm >90 (>60 ml/min/1.73 sqM) Est GFR (CKD-EPI)NonAf >90 (>60 ml/min/1.73 sqM) Glucose 116 H (74-99) mg/dL Calcium 8.8 (8.4-10.2) mg/dL Total Bilirubin 0.5 (0.2-1.3) mg/dL AST 32 (17-59) U/L ALT 26 (4-49) U/L Alkaline Phosphatase 58 (38-126) U/L Total Protein 7.2 (6.3-8.2) g/dL Albumin 4.0 (3.5-5.0) g/dL Urine Color Yellow Urine Appearance Clear (Clear) Urine pH 6.5 (5.0-8.0) Ur Specific [place] 1.022 (1.001-1.035) Urine Protein Trace H (Negative) Urine Glucose (UA) Negative (Negative) Urine Ketones Negative (Negative) Urine Blood Small H (Negative) Urine Nitrite Negative (Negative) Urine Bilirubin Negative (Negative) Urine Urobilinogen 2.0 (<2.0) mg/dL Ur Leukocyte Esterase Negative (Negative) Urine RBC 15 H (0-5) /hpf Urine WBC 2 (0-5) /hpf Hyaline Casts 1 (0-2) /lpf Urine Mucus Moderate H (None) /hpf Disposition <Kp De Leon - Last Filed: 03/08/20 19:05> Is patient prescribed a controlled substance at d/c from ED?: No Time of Disposition: 19:25 <Mariajose Abraham - Last Filed: 03/08/20 19:26> Clinical Impression: Right flank pain, Hematuria, Inguinal hernia, right, Enlarged prostate Disposition: HOME SELF-CARE Condition: Good Instructions (If sedation given, give patient instructions): Hematuria (ED) Additional Instructions: Please use medication as discussed. Please follow-up with family doctor in the next 2 days, your surgeon , and Dr. Patel urology. Please return to emergency room if the symptoms increase or worsen or for any other concerns. Referrals: Rinku Noriega MD [Primary Care Provider] - 1-2 days Nikki Bravo MD [STAFF PHYSICIAN] - 1-2 days Jeancarlos Patel MD [STAFF PHYSICIAN] - 1-2 days
--- NOTE | 2020-03-08 18:02 | CT ---
CT cystogram HISTORY: Hematuria and inguinal mass Helical acquisition through the pelvis. 50 cc mixed with 500 cc saline instilled through patient's Fo javi catheter. Scanning performed with the bladder wall and following emptying. Automated exposure control for dose reduction, DLP 984.6 mGycm. Urinary bladder shows no luminal mass. There is reflux of contrast material into the ureters. Right i nguinal hernia is present containing fat. Multiple clips within the pelvis consistent with postop yannick nge appear present within the mesenteric fat as well as in proximity to the pubic ramus on the right, no radiopaque mesh is identified however there inflammatory changes within the mesenteric fat. Prost ate likely enlarged. IMPRESSION: Vesicoureteral reflux bilaterally. Postprocedural changes. Correlate for history of herni a repair with dislodgment of mesh within the differential.
[2020-03-08] MEDS ORDERED: amLODIPine 5 MG TAB PO STA (18:10)
[2020-03-08] MEDS ORDERED: HYDROCHLOROTHIAZIDE 12.5 MG CAP PO SCH (18:15)
[2020-03-08 19:31] VITALS: BP 156/115; PULSE 72
== END 2020-03-08 19:36 | disposition home or self-care (01) ==
LOC: EC 11:31
DX: K40.90 Unilateral inguinal hernia, without obstruction or gangrene, not specified as recurrent (principal); N40.0 Benign prostatic hyperplasia without lower urinary tract symptoms; K21.9 Gastro-esophageal reflux disease without esophagitis; R31.9 Hematuria, unspecified; M54.5 Low back pain; I10 Essential (primary) hypertension; G47.30 Sleep apnea, unspecified; Z79.1 Long term (current) use of non-steroidal anti-inflammatories (NSAID); Z79.899 Other long term (current) drug therapy; Z99.89 Dependence on other enabling machines and devices; Z98.890 Other specified postprocedural states
CPT/HCPCS: 36415; 80053; 85025; 81001; 87086; 72192; 74177; 99284; Q9967 ×2

== ENCOUNTER → 2020-04-07 | Outpatient (CLI) | payer OTHER | END | disposition home or self-care (01) | LOC: LABWHC1 13:55 | PROVIDERS: ATTEND Internal Medicine | DX: I10 Essential (primary) hypertension (principal); R53.82 Chronic fatigue, unspecified; R63.5 Abnormal weight gain | CPT/HCPCS: 36415; 84402; 84403 ==

== ENCOUNTER → 2020-08-07 | Outpatient (CLI) | payer OTHER ==
--- NOTE | 2020-08-07 11:56 | XR ---
Lumbosacral spine HISTORY: Back pain 5 views of lumbosacral spine correlated to prior exam 05/31/2018 There is multilevel spondylosis present. No evident spondylolysis or spondylolisthesis. Loss of disc height is greatest at L2-3 similar to prior exam, there is associated vacuum phenomenon. Loss of disc height also present at L5-S1, L4-5. Sclerosis present in the posterior elements. IMPRESSION: Degenerative disc disease and facet arthropathy
--- NOTE | 2020-08-07 12:03 | XR ---
EXAMINATION TYPE: XR chest 2V DATE OF EXAM: 08/07/2020 COMPARISON: Prior chest x-ray 01/04/2020 HISTORY: R05, cough TECHNIQUE: Frontal and lateral views of the chest are obtained. FINDINGS: Lung volumes are low. There is prominence of the ascending aorta as on prior. There is no f ocal air space opacity, pleural effusion, or pneumothorax seen. The cardiac silhouette size is withi n normal limits. The osseous structures are stable, thoracic spondylosis again seen. IMPRESSION: No acute cardiopulmonary process. Aortic aneurysm.
== END | disposition home or self-care (01) ==
LOC: RADXRMAIN 09:22
PROVIDERS: ATTEND Internal Medicine
DX: M51.36 Other intervertebral disc degeneration, lumbar region (principal); M47.816 Spondylosis without myelopathy or radiculopathy, lumbar region; I71.2 Thoracic aortic aneurysm, without rupture
CPT/HCPCS: 71046; 72110

== ENCOUNTER → 2020-08-25 | Outpatient (CLI) | payer OTHER ==
--- NOTE | 2020-08-25 10:55 | CT ---
EXAMINATION TYPE: CT chest w con DATE OF EXAM: 08/25/2020 COMPARISON: 11/05/2014 HISTORY: 55-year-old male I71.9, Aortic aneurysm, cough, history of hiatal hernia repair TECHNIQUE: Contiguous axial scanning of the chest after the administration of 100 mL of Isovue 300. Coronal/sagittal reconstructions performed. CT DLP: 458.4mGycm. Automatic exposure control utilized for a dose reduction. FINDINGS: Heart upper limits of normal in size without pericardial effusion. LAD and RCA coronary artery calcif ications are present and are remarkable for coronary artery disease. Aortic root aneurysmal at 4.0 cm, probably unchanged given prominent motion on the comparison study. Proximal ascending aorta measures 4.2 cm, unchanged. Mid to upper ascending aorta appears normal at 4.5 cm versus 4.3 cm, previously. Ectatic upper descending thoracic aorta 3.2 cm, unchanged. Ectatic lower descending thoracic aorta at 2.7 cm, unchanged. Mild dependent atelectasis. Some hazy atelectasis within the lower lobes. No consolidation or pleural effusion. Post surgical changes of hiatal hernia repair with a recurrent small hiatal hernia suspected given th e appearance of gastric folds above the GE junction. Gallbladder borderline hydropic at 4.1 cm wide but without any surrounding inflammation, likely due t o fasting state. Bones: Accentuated mid thoracic kyphosis. DISH within the mid to lower thoracic spine. IMPRESSION: 1. Aneurysmal ascending aorta stable to minimally increased at 4.5 cm versus 4.3 cm on 11/05/2014. 2. Stable ectatic descending thoracic aorta measuring up to 3.2 cm. 3. Interval hiatal hernia repair but with a recurrent small hiatal hernia suspected. Correlate for an y recurrent clinical symptoms. The patient can be further assessed by his surgeon. 4. LAD and RCA coronary artery calcifications.
== END | disposition home or self-care (01) ==
LOC: RADCTMAIN 10:04
PROVIDERS: ATTEND Internal Medicine
DX: I77.810 Thoracic aortic ectasia (principal); K44.9 Diaphragmatic hernia without obstruction or gangrene; I25.10 Atherosclerotic heart disease of native coronary artery without angina pectoris
CPT/HCPCS: 71260; Q9967

== ENCOUNTER → 2020-12-23 | Outpatient (CLI) | payer OTHER ==
--- NOTE | 2020-12-23 19:00 | CONS ---
CONSULTATION DATE OF SERVICE: 12/23/2020 This is a 55-year-old gentleman who has had [facility] for obstructive sleep apnea-hypopnea syndrome. HISTORY OF PRESENT ILLNESS/SLEEP-WAKE EVALUATION: The last time I saw this patient was in 2014. At that time he was diagnosed with severe obstructive sleep apnea with apnea-hypopnea index 47.6. He has been on treatment with CPAP since that time. He continues to use CPAP equipment every night, except recently he was not able to use equipment because his mask was broken. His sleep schedule is from 11 p.m. to 6:30 or 7 a.m. No problem with falling asleep. No TV in bedroom. When he is using the machine he does not snore and does not wake up from sleep. [place] Sleepiness Scale today is 3. PAST MEDICAL HISTORY: Positive for hypertension, allergies, iron deficiency anemia. PAST SURGICAL HISTORY: Surgery for hiatal hernia, nasal fracture. MEDICATIONS: Losartan/hydrochlorothiazide. SOCIAL HISTORY: Negative for smoking or using alcohol. REVIEW OF SYSTEMS: No problems with sleep while using his CPAP. I checked his CPAP unit. CPAP pressure is 10 cm of water. Leak was 16 L/minute. Apnea- hypopnea index 2.1, which is normal. CPAP mask is broken. PHYSICAL EXAMINATION: GENERAL: A pleasant patient in no distress. VITAL SIGNS: BP 126/86, HR 95, RR 15, height 5 feet 10-1/2 inches, weight 219.6, temperature 98.1, oxygen saturation at room air 96%. HEENT: PERRLA, EOMI. Evaluation of oropharynx showed tongue protrudes midline. Low position of soft palate. NECK: Supple. No JVD. Thyroid is not palpable. LUNGS: Clear to percussion and to auscultation. Good air exchange. No wheezing or rhonchi. HEART: S1, S2 regular. No murmurs, gallops or rubs. ABDOMEN: Soft and nontender. Bowel sounds are present. No organomegaly appreciated. EXTREMITIES: No clubbing or cyanosis. X [employer]: Awake, alert, and oriented X3. Cranial nerves 2 to 7 intact. There is no fasciculation or atrophy. noted. No focal deficits observed. IMPRESSION: 1. Severe obstructive sleep apnea/hypopnea syndrome; apnea-hypopnea index 47.6 with oxygen desaturation to 66.9% per results of polysomnogram in 2014. Patient continues to use CPAP equipment. While on CPAP no snoring or awakenings from sleep. 2. Mild obesity. BMI 30.9. 3. Allergies. 4. History of nasal fracture in the past. 5. History of iron deficiency anemia in the past. 6. Status post surgery for hiatal hernia. PLAN: 1. Prescription for all necessary CPAP supplies, including Sy FX, nasal pillow mask and head gear. 2. Patient should continue to use his CPAP equipment every night. 3. Watching and losing weight. 4. Sleep hygiene with regular time bed for at least 7-1/2 hours. 5. No driving if feeling any sleepiness. Thank you very much for allowing me to participate in the management of your patient. Sincerely, Kevin Meraz MD, PhD, FAASM Diplomat of [place] [employer] [place] [employer] [facility] [place] MMODL / HEIDIN: [id number] /
== END ==
LOC: SLEEP 15:12
PROVIDERS: ATTEND Internal Medicine
DX: G47.33 Obstructive sleep apnea (adult) (pediatric) (principal); E66.9 Obesity, unspecified; Z68.30 Body mass index [BMI] 30.0-30.9, adult; T78.40XA Allergy, unspecified, initial encounter; Z87.828 Personal history of other (healed) physical injury and trauma; Z86.2 Personal history of diseases of the blood and blood-forming organs and certain disorders involving the immune mechanism; Z48.815 Encounter for surgical aftercare following surgery on the digestive system
CPT/HCPCS: 99211

== ENCOUNTER → 2021-12-25 | Outpatient (CLI) | payer OTHER ==
--- NOTE | 2021-12-25 12:00 | CT ---
EXAMINATION TYPE: CT chest w con DATE OF EXAM: 12/25/2021 COMPARISON: 08/25/2020 HISTORY: cough and SOB CT DLP: 469.90 mGycm Automated exposure control for dose reduction was used. TECHNIQUE: CT scan of the chest is performed with IV Contrast, patient injected with 100ml mL of Isovue 300. UT P Images are created on CT scanner and reviewed. 3D reconstructed images are created on an [employer] workstation and reviewed. FINDINGS: LUNGS: The lungs are grossly clear, there is no concerning parenchymal mass or nodule identified. T here is no pleural effusion or pneumothorax seen. The tracheobronchial tree is patent. 1 mm subpleur al nodule posteriorly. Left lower lobe. MEDIASTINUM: There are no greater than 1 cm hilar or mediastinal lymph nodes. Heart upper limits of normal in size without pericardial effusion. LAD and RCA coronary artery calcifications are present a nd are remarkable for coronary artery disease. Aortic root aneurysmal at 4.0 cm, probably unchanged g iven prominent motion on the comparison study. Proximal ascending aorta measures 4.2 cm, unchanged. E ctatic upper descending thoracic aorta 3.2 cm, unchanged. Ectatic lower descending thoracic aorta at 2.7 cm, unchanged. Coronary artery calcification noted. OTHER: Small hiatal hernia with surgical clips in the region. Trace gynecomastia.. Thyroid gland pro minent in size. Correlate clinically. Accentuated mid thoracic kyphosis. DISH within the mid to lower thoracic spine. [place] mesenteric lymph nodes noted. IMPRESSION: 1. No acute intrathoracic process. 2. Mild aneurysmal dilation ascending aorta measuring 4.2 cm. 3. Dense coronary artery calcification.
== END | disposition home or self-care (01) ==
LOC: RADCTMAIN 07:41
PROVIDERS: ATTEND Internal Medicine
DX: I71.2 Thoracic aortic aneurysm, without rupture (principal); I25.10 Atherosclerotic heart disease of native coronary artery without angina pectoris
CPT/HCPCS: 71260; Q9967

== ENCOUNTER 2022-04-11 18:13 | Emergency (ER) | payer OTHER ==
[2022-04-11 18:18] VITALS: RESP 20; TEMP 98.5
[2022-04-11] MEDS ORDERED: MAGNESIUM SULFATE-D5W PMX 1 GM in DEXTROSE/WATER 1 100ML.BAG IVPB ONE (18:49)
[2022-04-11] MEDS ORDERED: IPRATROPIUM-ALBUTEROL 3 ML NEB INHALATION STA (18:49)
[2022-04-11] MEDS ORDERED: methylPREDNISolone SOD SUCCI 125 MG/2 ML VIAL IV STA (18:49)
[2022-04-11] MEDS ORDERED: ASPIRIN 81 MG PO STA (18:49)
--- NOTE | 2022-04-11 19:02 | ED ---
General Adult HPI - General Chief complaint: Chest Pain Stated complaint: Chest Pain Time Seen by Provider: 04/11/22 18:40 Source: patient, RN notes reviewed, old records reviewed Mode of arrival: ambulatory Limitations: no limitations - History of Present Illness Initial comments: Patient is a 56-year-old male with past medical history remarkable for h ypertension, asthma, stable aortic aneurysm presents emergency Department complaining of a multiweek history of cough, "bad asthma." States that over the last few days of discomfort worsened today was worse. Was moving hay outside today when he began having productive cough that was worse. Has been producing green mucous. Last week completed a course of antibiotics as well as steroids and was feeling improved but once again this week is feeling worse. Also is having chest tightness bilaterally that is worse with coughing and started with the rest of his symptoms. No improvement at home. Presents for further evaluation. Believes he may need more steroids. No other acute complaints at this time. Was not vaccinated for his Covid. Was not vaccinated for flu. No sick contacts. No fevers. - Related Data Home Medications Medication Instructions Recorded Confirmed amLODIPine [Norvasc] 5 mg PO DAILY 12/31/19 01/04/20 hydroCHLOROthiazide [Hydrodiuril] 12.5 mg PO DAILY 12/31/19 01/04/20 Ibuprofen 800 mg PO Q8H 01/04/20 01/04/20 Previous Rx's Medication Instructions Recorded Albuterol Inhaler [Ventolin Hfa 2 puff INHALATION Q6HR PRN #1 01/04/20 Inhaler] inhaler Amoxic-Pot Clav 875-125Mg 1 tab PO BID 10 Days #20 tab 01/04/20 [Augmentin 875-125] Benzonatate [Tessalon Perles] 200 mg PO TID PRN #21 capsule 01/04/20 Oseltamivir [Tamiflu] 75 mg PO Q12HR #10 cap 01/04/20 predniSONE [Deltasone] 20 mg PO BID #10 tab 01/04/20 Sulfamethox-Tmp 800-160Mg [Bactrim 1 tab PO Q12HR 7 Days #14 tab 03/09/20 DS 800-160 mg] amLODIPine [Norvasc] 5 mg PO DAILY 14 Days #14 tab 03/09/20 hydroCHLOROthiazide 12.5 mg PO DAILY 14 Days #14 03/09/20 capsule Albuterol Inhaler [Ventolin Hfa 1 - 2 puff INHALATION RT-Q6H PRN 04/11/22 Inhaler] #1 unit Doxycycline [Vibramycin] 100 mg PO BID 7 Days #14 capsule 04/11/22 predniSONE [Deltasone] 40 mg PO DAILY 5 Days #10 tab 04/11/22 Allergies Allergy/AdvReac Type Severity Reaction Status Date / Time No Known Allergies Allergy Verified 04/11/22 18:18 Review of Systems ROS Statement: Those systems with pertinent positive or pertinent negative responses have been documented in the HPI. Review of Systems: CONST: Denies fever EYES: Denies blurry vision ENT: Denies nasal congestion C/V: Endorses chest tightness RESP: Endorses cough GI: Denies abdominal pain : Denies dysuria SKIN: Denies rash. MSK: Denies joint pain. NEURO: Denies headache ROS Other: All systems not noted in ROS Statement are negative. Past Medical History Past Medical History: Asthma, Hypertension, Sleep Apnea/CPAP/BIPAP Additional Past Medical History / Comment(s): WAS TOLD IN PAST HAD AORTIC ANEURYSM, NONE SEEN ON RECENT CT SCAN. Seasoning allergies History of Any Multi-Drug Resistant Organisms: None Reported Past Surgical History: Appendectomy, Hernia Repair, Orthopedic Surgery Additional Past Surgical History / Comment(s): ORIF RT ARM & REMOVAL OF HARDWARE, EGD, COLONOSCOPY, HIATAL HERNIA -AUDREY, UMBILICAL HERNIA, ABDOMINAL HERNIA, inguinal hernia. Has had multiple hernia repairs. Past Anesthesia/Blood Transfusion Reactions: Previous Problems w/ Anesthesia, Postoperative Nausea & Vomiting (PONV) Additional Past Anesthesia/Blood Transfusion Reaction / Comment(s): DIFFICULTY WAKING UP. Past Psychological History: No Psychological Hx Reported Smoking Status: Never smoker Past Alcohol Use History: Rare Past Drug Use History: None Reported - Past Family History Sister(s) Family Medical History: Cancer Additional Family Medical History / Comment(s): BREAST CANCER Mother Family Medical History: Cancer Additional Family Medical History / Comment(s): BREAST Father Family Medical History: Cancer General Exam - General Exam Comments Initial Comments: General: Appears in no acute distress. HEAD: Normal with no signs of head trauma. EYES: PERRLA, EOMI, conjunctiva normal, no discharge. ENT: Hearing grossly intact, normal oropharynx. RESPIRATORY: Bilateral mild end expiratory wheezing, speaking centrally. Cough productive of green mucous. No respiratory distress. No hypoxia. C/V: Regular rate and rhythm. S1 and S2 auscultated, no edema, peripheral pulses 2+ and intact throughout ABD: Abd is soft, nontender, nondistended EXT: Normal range of motion, no obvious deformity SKIN: No rashes or lesions observed on exposed skin. NEURO: Alert and oriented 4. Limitations: no limitations Course Vital Signs 04/11/22 04/11/22 04/11/22 18:15 20:03 20:21 Temperature 98.5 F Pulse Rate 107 H 77 80 Respiratory 20 20 Rate Blood Pressure 132/96 141/93 O2 Sat by Pulse 99 96 Oximetry 04/11/22 04/11/22 20:28 22:05 Temperature Pulse Rate 72 83 Respiratory 20 Rate Blood Pressure 121/85 O2 Sat by Pulse 97 Oximetry Medical Decision Making - Medical Decision Making Abdomen the patient's presentation and physical exam, I believe this is likely an upper respiratory infection versus asthma exacerbation with bronchitis. Cannot rule out cardiac etiology at this time. He'll with this history of aneurysm in his age. Did recommend we obtain a cardiac screening workup in addition to pulmonary infectious workup and asthma. He'll be given a breathing treatment, IV steroids and magnesium. EKG, chest x-ray, labs as well as viral swabs will be obtained. He was in agreement this plan. EKG showed no signs of acute ischemia. Laboratory studies remarkable for a nondetectable troponin. Covid and flu were negative. Remainder of the labs are unremarkable. Chest x-ray reveals no acute cardiopulmonary process. On reevaluation, we did discuss his laboratory studies and imaging. Expressed understanding of the insignificant findings. Discussed he is likely experiencing recurrent bronchitis as well as an asthma exacerbation, probably secondary to his recent exposure to hay and grass. I did discuss wearing a mask while he is working with hay, and he was in agreement. Due to the productive cough, he will be given doxycycline outpatient in addition to steroids and albuterol. Recommended follow-up with his PCP. He was in agreement this plan. I will provide the patient with a prescription for prednisone, albuterol, doxycycline. I instructed the patient to follow up with their PCP in the next 3 days. I explained that the patient should return to the emergency department if they experience any worsening symptoms. Strict return precautions were discussed with the patient. The patient expressed understanding of these instructions. I answered all questions that the patient had. The patient was discharged home in good condition with their prescriptions and follow up inf ormation. - Lab Data Result diagrams: 04/11/22 19:32 04/11/22 19:32 Lab Results 04/11/22 04/11/22 04/11/22 Range/Units 19:32 19:32 19:32 WBC 8.5 (3.8-10.6) k/uL RBC 4.27 L (4.30-5.90) m/uL Hgb 13.0 (13.0-17.5) gm/dL Hct 40.1 (39.0-53.0) % MCV 94.0 (80.0-100.0) fL MCH 30.4 (25.0-35.0) pg MCHC 32.4 (31.0-37.0) g/dL RDW 13.8 (11.5-15.5) % Plt Count 247 (150-450) k/uL MPV 6.5 Neutrophils % 66 % Lymphocytes % 23 % Monocytes % 8 % Eosinophils % 0 % Basophils % 1 % Neutrophils # 5.7 (1.3-7.7) k/uL Lymphocytes # 2.0 (1.0-4.8) k/uL Monocytes # 0.7 (0-1.0) k/uL Eosinophils # 0.0 (0-0.7) k/uL Basophils # 0.1 (0-0.2) k/uL PT 9.9 (9.0-12.0) sec INR 0.9 (<1.2) APTT 22.1 (22.0-30.0) sec Sodium (137-145) mmol/L Potassium (3.5-5.1) mmol/L Chloride (98-107) mmol/L Carbon Dioxide (22-30) mmol/L Anion Gap mmol/L BUN (9-20) mg/dL Creatinine (0.66-1.25) mg/dL Est GFR (CKD-EPI)AfAm (>60 ml/min/1.73 sqM) Est GFR (CKD-EPI)NonAf (>60 ml/min/1.73 sqM) Glucose (74-99) mg/dL Calcium (8.4-10.2) mg/dL Magnesium (1.6-2.3) mg/dL Total Bilirubin (0.2-1.3) mg/dL AST (17-59) U/L ALT (4-49) U/L Alkaline Phosphatase (38-126) U/L Troponin I (0.000-0.034) ng/mL Total Protein (6.3-8.2) g/dL Albumin (3.5-5.0) g/dL Urine Color Yellow Urine Appearance Clear (Clear) Urine pH 5.5 (5.0-8.0) Ur Specific [place] 1.019 (1.001-1.035) Urine Protein Negative (Negative) Urine Glucose (UA) Negative (Negative) Urine Ketones 1+ H (Negative) Urine Blood Negative (Negative) Urine Nitrite Negative (Negative) Urine Bilirubin Negative (Negative) Urine Urobilinogen 4.0 (<2.0) mg/dL Ur Leukocyte Esterase Negative (Negative) Coronavirus (PCR) (Not Detectd) Influenza Type A RNA (Not Detectd) Influenza Type B (PCR) (Not Detectd) 04/11/22 04/11/22 04/11/22 Range/Units 19:32 19:32 19:32 WBC (3.8-10.6) k/uL RBC (4.30-5.90) m/uL Hgb (13.0-17.5) gm/dL Hct (39.0-53.0) % MCV (80.0-100.0) fL MCH (25.0-35.0) pg MCHC (31.0-37.0) g/dL RDW (11.5-15.5) % Plt Count (150-450) k/uL MPV Neutrophils % % Lymphocytes % % Monocytes % % Eosinophils % % Basophils % % Neutrophils # (1.3-7.7) k/uL Lymphocytes # (1.0-4.8) k/uL Monocytes # (0-1.0) k/uL Eosinophils # (0-0.7) k/uL Basophils # (0-0.2) k/uL PT (9.0-12.0) sec INR (<1.2) APTT (22.0-30.0) sec Sodium 139 (137-145) mmol/L Potassium 3.5 (3.5-5.1) mmol/L Chloride 104 (98-107) mmol/L Carbon Dioxide 31 H (22-30) mmol/L Anion Gap 4 mmol/L BUN 21 H (9-20) mg/dL Creatinine 0.90 (0.66-1.25) mg/dL Est GFR (CKD-EPI)AfAm >90 (>60 ml/min/1.73 sqM) Est GFR (CKD-EPI)NonAf >90 (>60 ml/min/1.73 sqM) Glucose 89 (74-99) mg/dL Calcium 8.5 (8.4-10.2) mg/dL Magnesium 2.1 (1.6-2.3) mg/dL Total Bilirubin 0.4 (0.2-1.3) mg/dL AST 30 (17-59) U/L ALT 15 (4-49) U/L Alkaline Phosphatase 40 (38-126) U/L Troponin I <0.012 (0.000-0.034) ng/mL Total Protein 6.1 L (6.3-8.2) g/dL Albumin 3.7 (3.5-5.0) g/dL Urine Color Urine Appearance (Clear) Urine pH (5.0-8.0) Ur Specific [place] (1.001-1.035) Urine Protein (Negative) Urine Glucose (UA) (Negative) Urine Ketones (Negative) Urine Blood (Negative) Urine Nitrite (Negative) Urine Bilirubin (Negative) Urine Urobilinogen (<2.0) mg/dL Ur Leukocyte Esterase (Negative) Coronavirus (PCR) (Not Detectd) Influenza Type A RNA Not Detected (Not Detectd) Influenza Type B (PCR) Not Detected (Not Detectd) 04/11/22 Range/Units 19:32 WBC (3.8-10.6) k/uL RBC (4.30-5.90) m/uL Hgb (13.0-17.5) gm/dL Hct (39.0-53.0) % MCV (80.0-100.0) fL MCH (25.0-35.0) pg MCHC (31.0-37.0) g/dL RDW (11.5-15.5) % Plt Count (150-450) k/uL MPV Neutrophils % % Lymphocytes % % Monocytes % % Eosinophils % % Basophils % % Neutrophils # (1.3-7.7) k/uL Lymphocytes # (1.0-4.8) k/uL Monocytes # (0-1.0) k/uL Eosinophils # (0-0.7) k/uL Basophils # (0-0.2) k/uL PT (9.0-12.0) sec INR (<1.2) APTT (22.0-30.0) sec Sodium (137-145) mmol/L Potassium (3.5-5.1) mmol/L Chloride (98-107) mmol/L Carbon Dioxide (22-30) mmol/L Anion Gap mmol/L BUN (9-20) mg/dL Creatinine (0.66-1.25) mg/dL Est GFR (CKD-EPI)AfAm (>60 ml/min/1.73 sqM) Est GFR (CKD-EPI)NonAf (>60 ml/min/1.73 sqM) Glucose (74-99) mg/dL Calcium (8.4-10.2) mg/dL Magnesium (1.6-2.3) mg/dL Total Bilirubin (0.2-1.3) mg/dL AST (17-59) U/L ALT (4-49) U/L Alkaline Phosphatase (38-126) U/L Troponin I (0.000-0.034) ng/mL Total Protein (6.3-8.2) g/dL Albumin (3.5-5.0) g/dL Urine Color Urine Appearance (Clear) Urine pH (5.0-8.0) Ur Specific [place] (1.001-1.035) Urine Protein (Negative) Urine Glucose (UA) (Negative) Urine Ketones (Negative) Urine Blood (Negative) Urine Nitrite (Negative) Urine Bilirubin (Negative) Urine Urobilinogen (<2.0) mg/dL Ur Leukocyte Esterase (Negative) Coronavirus (PCR) Not Detected (Not Detectd) Influenza Type A RNA (Not Detectd) Influenza Type B (PCR) (Not Detectd) - EKG Data -: EKG Interpreted by Me EKG Comments: 12-lead Electrocardiogram Interpretation Note EKG was reviewed and interpreted by myself. 12-lead ECG performed at 194 is interpreted by me as revealing normal sinus rhythm at a rate of 74 beats per mi nute. [place] is normal. [place] Intervals 194 ms, QRS durations 110 ms, QTc is 401 ms.. There were no ST or T wave abnormalities to suggest myocardial ischemia or injury. R wave progression across the precordium was satisfactory. By my interpretation this EKG is non-diagnostic for acute ischemia. Disposition Clinical Impression: Asthma, Bronchitis Disposition: HOME SELF-CARE Condition: Good Instructions (If sedation given, give patient instructions): Acute Bronchitis (ED) Prescriptions: predniSONE [Deltasone] 40 mg PO DAILY 5 Days #10 tab Albuterol Inhaler [Ventolin Hfa Inhaler] 1 - 2 puff INHALATION RT-Q6H PRN #1 unit PRN Reason: Wheezing Doxycycline [Vibramycin] 100 mg PO BID 7 Days #14 capsule Is patient prescribed a controlled substance at d/c from ED?: No Referrals: None,Stated [Primary Care Provider] - 1-2 days Time of Disposition: 20:43
--- NOTE | 2022-04-11 19:12 | XR ---
EXAMINATION TYPE: XR chest 2V DATE OF EXAM: 04/11/2022 COMPARISON: 06/24/2021 HISTORY: Chest pain TECHNIQUE: 2 views FINDINGS: Heart is normal. Lungs are clear of infiltrate. No heart failure. IMPRESSION: Normal chest. No change.
[2022-04-11 19:52] LABS: Basophils # (A) 0.1 k/uL (0-0.2); Basophils % (A) 1 %; Eosinophils % (A) 0 %; HCT 40.1 % (39.0-53.0); Lymphocytes % (A) 23 %; MCH 30.4 pg (25.0-35.0); MCHC 32.4 g/dL (31.0-37.0); Mean Platelet Volume 6.5; Monocytes # (A) 0.7 k/uL (0-1.0); Monocytes % (A) 8 %; Neutrophils # (A) 5.7 k/uL (1.3-7.7); Neutrophils % (A) 66 %; Platelet Count 247 k/uL (150-450); RBC 4.27 m/uL (4.30-5.90); RDW 13.8 % (11.5-15.5); WBC 8.5 k/uL (3.8-10.6)
[2022-04-11 20:09] LABS: Appearance,Urine Clear (Clear); Bilirubin,Urine Negative (Negative); Blood,Urine Negative (Negative); Color,Urine Yellow; Glucose,Urine (UA) Negative (Negative); Ketones,Urine 1+ (Negative); Leukocyte Esterase,Urine Negative (Negative); Nitrite,Urine Negative (Negative); PH, Urine 5.5 (5.0-8.0); Protein,Urine Negative (Negative); Specific Gravity,Urine 1.019 (1.001-1.035)
[2022-04-11 20:11] LABS: ALT 15 U/L (4-49); AST 30 U/L (17-59); African American GFR (CKD) >90 (>60 ml/min/1.73 sqM); Albumin 3.7 g/dL (3.5-5.0); Alkaline Phosphatase 40 U/L (38-126); Anion Gap 4 mmol/L; Blood Urea Nitrogen 21 mg/dL (9-20); Calcium 8.5 mg/dL (8.4-10.2); Carbon Dioxide 31 mmol/L (22-30); Chloride 104 mmol/L (98-107); Glucose 89 mg/dL (74-99); INR 0.9 (<1.2); Magnesium 2.1 mg/dL (1.6-2.3); Non-African American GFR(CKD) >90 (>60 ml/min/1.73 sqM); Partial Thromboplastin Time 22.1 sec (22.0-30.0); Potassium 3.5 mmol/L (3.5-5.1); Prothrombin Time 9.9 sec (9.0-12.0); Sodium 139 mmol/L (137-145); Total Bilirubin 0.4 mg/dL (0.2-1.3); Total Protein 6.1 g/dL (6.3-8.2)
[2022-04-11] MEDS ORDERED: DOXYCYCLINE 100 MG CAP PO STA (20:40)
[2022-04-11 22:06] VITALS: BP 121/85; PULSE 83
== END 2022-04-11 22:06 | disposition home or self-care (01) ==
LOC: EC 18:13
DX: J45.909 Unspecified asthma, uncomplicated (principal); Z20.822 Contact with and (suspected) exposure to COVID-19; I10 Essential (primary) hypertension; Z79.51 Long term (current) use of inhaled steroids; Z79.899 Other long term (current) drug therapy
CPT/HCPCS: 36415; 94640; 93005; 80053; 83735; 84484; 85025; 85610; 85730; 81003; 87502; 87635; 71046; 99285; 96365; 96366; 96375; J2930; J3475

== ENCOUNTER → 2024-01-16 | Outpatient (CLI) | payer OTHER ==
[2024-01-17 14:50] LABS: C-ANCA <1:20 Titer (<1:20)
== END | disposition home or self-care (01) ==
LOC: LABWHC1 16:17
PROVIDERS: ATTEND Internal Medicine Pulmonary Disease
DX: J45.21 Mild intermittent asthma with (acute) exacerbation (principal)
CPT/HCPCS: 36415; 86001; 86255; 86606; 86609

== ENCOUNTER 2024-02-01 23:40 | Emergency (ER) | payer OTHER ==
[2024-02-01 23:51] VITALS: TEMP 98
--- NOTE | 2024-02-01 23:58 | ED ---
SOB HPI - General Chief Complaint: Shortness of Breath Stated Complaint: Cough Time Seen by Provider: 02/01/24 23:56 Source: patient, RN notes reviewed, old records reviewed Mode of arrival: wheelchair Limitations: no limitations - History of Present Illness Initial Comments: This is a 58-year-old male to ER after a syncopal event. Patient was having no ability to respond at home after coughing attacks tonight. Patient continues to have the symptoms here in the ER severe cough with complex medical history and complex surgical history MD Complaint: shortness of breath, cough, pain with inspiration, "asthma attack", anxiety -: year(s) Severity: severe Severity scale (1-10): 10 Quality: throbbing Improves With: nothing Worsens With: nothing Context: recent URI, recent illness Associated Symptoms: denies other symptoms Treatments Prior to Arrival: none - Related Data Home Medications Medication Instructions Recorded Confirmed amLODIPine [Norvasc] 5 mg PO DAILY 12/31/19 01/04/20 hydroCHLOROthiazide [Hydrodiuril] 12.5 mg PO DAILY 12/31/19 01/04/20 Ibuprofen 800 mg PO Q8H 01/04/20 01/04/20 Previous Rx's Medication Instructions Recorded Albuterol Inhaler [Ventolin Hfa 2 puff INHALATION Q6HR PRN #1 01/04/20 Inhaler] inhaler Amoxic-Pot Clav 875-125Mg 1 tab PO BID 10 Days #20 tab 01/04/20 [Augmentin 875-125] Benzonatate [Tessalon Perles] 200 mg PO TID PRN #21 capsule 01/04/20 Oseltamivir [Tamiflu] 75 mg PO Q12HR #10 cap 01/04/20 predniSONE [Deltasone] 20 mg PO BID #10 tab 01/04/20 Sulfamethox-Tmp 800-160Mg [Bactrim 1 tab PO Q12HR 7 Days #14 tab 03/09/20 DS 800-160 mg] amLODIPine [Norvasc] 5 mg PO DAILY 14 Days #14 tab 03/09/20 hydroCHLOROthiazide 12.5 mg PO DAILY 14 Days #14 03/09/20 capsule Albuterol Inhaler [Ventolin Hfa 1 - 2 puff INHALATION RT-Q6H PRN 04/11/22 Inhaler] #1 unit Doxycycline [Vibramycin] 100 mg PO BID 7 Days #14 capsule 04/11/22 predniSONE [Deltasone] 40 mg PO DAILY 5 Days #10 tab 04/11/22 Amoxic-Pot Clav 875-125Mg 1 tab PO Q12HR #20 tablet 02/02/24 [Augmentin 875-125] Benzonatate [Tessalon Perles] 100 mg PO TID PRN #15 capsule 02/02/24 Guaifenesin/Dextromethorphan 5 ml PO Q6HR #120 ml 02/02/24 [Guaifenesin-Dm 100-10 mg/5 ml] guaiFENesin-Coden 100-10MG/5ML 5 - 10 ml PO Q6H PRN 3 Days #120 ml 02/02/24 [Robitussin AC] Allergies Allergy/AdvReac Type Severity Reaction Status Date / Time No Known Allergies Allergy Verified 04/11/22 18:18 Review of Systems ROS Statement: Those systems with pertinent positive or pertinent negative responses have been documented in the HPI. ROS Other: All systems not noted in ROS Statement are negative. Past Medical History Past Medical History: Asthma, Hypertension, Sleep Apnea/CPAP/BIPAP Additional Past Medical History / Comment(s): WAS TOLD IN PAST HAD AORTIC ANEURYSM, NONE SEEN ON RECENT CT SCAN. Seasoning allergies History of Any Multi-Drug Resistant Organisms: None Reported Past Surgical History: Appendectomy, Hernia Repair, Orthopedic Surgery Additional Past Surgical History / Comment(s): ORIF RT ARM & REMOVAL OF HARDWARE, EGD, COLONOSCOPY, HIATAL HERNIA -AUDREY, UMBILICAL HERNIA, ABDOMINAL HERNIA, inguinal hernia. Has had multiple hernia repairs. Past Anesthesia/Blood Transfusion Reactions: Previous Problems w/ Anesthesia, Postoperative Nausea & Vomiting (PONV) Additional Past Anesthesia/Blood Transfusion Reaction / Comment(s): DIFFICULTY WAKING UP. Past Psychological History: No Psychological Hx Reported Smoking Status: Never smoker Past Alcohol Use History: Rare Past Drug Use History: None Reported - Past Family History Sister(s) Family Medical History: Cancer Additional Family Medical History / Comment(s): BREAST CANCER Mother Family Medical History: Cancer Additional Family Medical History / Comment(s): BREAST Father Family Medical History: Cancer General Exam Limitations: no limitations General appearance: alert, in no apparent distress Head exam: Present: atraumatic, normocephalic, normal inspection Eye exam: Present: normal appearance, PERRL, EOMI. Absent: scleral icterus, con junctival injection, periorbital swelling ENT exam: Present: normal exam, mucous membranes moist Neck exam: Present: normal inspection. Absent: tenderness, meningismus, lymphadenopathy Respiratory exam: Present: normal lung sounds bilaterally. Absent: respiratory distress, wheezes, rales, rhonchi, stridor Cardiovascular Exam: Present: regular rate, normal rhythm, normal heart sounds. Absent: systolic murmur, diastolic murmur, rubs, gallop, clicks GI/Abdominal exam: Present: soft, normal bowel sounds. Absent: distended, tenderness, guarding, rebound, rigid Extremities exam: Present: normal inspection, full ROM, normal capillary refill. Absent: tenderness, pedal edema, joint swelling, calf tenderness Back exam: Present: normal inspection Neurological exam: Present: alert, oriented X3, CN II-XII intact Psychiatric exam: Present: normal affect, normal mood Skin exam: Present: warm, dry, intact, normal color. Absent: rash Course Vital Signs 02/01/24 02/02/24 02/02/24 23:41 00:15 00:27 Temperature 98 F Pulse Rate 121 H 98 95 Respiratory 20 18 Rate Blood Pressure 142/110 133/87 O2 Sat by Pulse 99 98 Oximetry 02/02/24 02/02/24 02/02/24 00:30 02:19 03:53 Temperature Pulse Rate 99 95 84 Respiratory 18 18 Rate Blood Pressure 131/90 127/83 O2 Sat by Pulse 96 100 Oximetry - Reevaluation(s) Reevaluation #1: 02/02/24 02:53 Medical records reviewed Reevaluation #2: 02/02/24 02:53 Patient has persistent coughing attacks with spasm here in the emergency department Reevaluation #3: Patient informed of results and questions answered Reevaluation #4: Was pt. sent in by a medical professional or institution (, PA, [employer]ER, urgent care, hospital, or penitentiary...) When possible be specific @ -no Did you speak to anyone other than the patient for history (EMS, parent, family, police, friend...)? What history was obtained from this source @ -no Did you review nursing and triage notes (agree or disagree)? Why? @ -agree Are old charts reviewed (outside hosp., previous admission, EMS record, old EKG, old radiological studies, urgent care reports/EKG's, penitentiary records)? Report findings @ -yes Differential Diagnosis (chest pain, altered mental status, abdominal pain women, abdominal pain men, vaginal bleeding, weakness, fever, dyspnea, syncope, headache, dizziness, GI bleed, back pain, seizure, CVA, palpatations, mental health, musculoskeletal)? @ -prior EKG interpreted by me (3pts min.). @ -yes X-rays interpreted by me (1pt min.). @ -yes negative for acute disease CT interpreted by me (1pt min.). @ -no U/S interpreted by me (1pt. min.). @ -no What testing was considered but not performed or refused? (CT, X-rays, U/S, labs)? Why? @ -none What meds were considered but not given or refused? Why? @ -none Did you discuss the management of the patient with other professionals (professionals i.e. , PA, [employer]ER, lab, RT, psych nurse, social work supervisor, auto apprentice mechanic, teacher, duty officer, case mgr)? Give summary @ -no Was smoking cessation discussed for >3mins.? @ -no Was critical care preformed (if so, how long)? @ -no Were there social determinants of health that impacted care today? How? (Homelessness, low income, unemployed, alcoholism, drug addiction, transportation, low edu. Level, literacy, decrease access to med. care, detention, rehab)? @ -none Was there de-escalation of care discussed even if they declined (Discuss DNR or withdrawal of care, Hospice)? DNR status @ -no What co-morbidities impacted this encounter? (DM, HTN, Smoking, COPD, CAD, Cancer, CVA, ARF, Chemo, Hep., AIDS, mental health diagnosis, sleep apnea, morbid obesity)? @ -none Was patient admitted / discharged? Hospital course, mention meds given and route, prescriptions, significant lab abnormalities, going to OR and other pertinent info. @ - 58 male to ER for evaluation of coughing fit and acute bronchospasm. Patient symptoms are improved here in the ER he feels well and can be discharged home Discharge Undiagnosed new problem with uncertain prognosis? @ -no Drug Therapy requiring intensive monitoring for toxicity (Heparin, Nitro, Insulin, Cardizem)? @ -no Were any procedures done? @ -no Diagnosis/symptom? @ -Bronchospasm and chest pain Acute, or Chronic, or Acute on Chronic? @ -Acute Uncomplicated (without systemic symptoms) or Complicated (systemic symptoms)? @ -Complicated Side effects of treatment? @ -no Exacerbation, Progression, or Severe Exacerbation? @ -exacerbation Poses a threat to life or bodily function? How? (Chest pain, [place], [place], pneumonia, PE, COPD, DKA, ARF, appy, cholecystitis, CVA, Diverticulitis, Homicidal, Suicidal, threat to staff... and all critical care pts) @ -yes with chest pain and coughing spasm Reevaluation #5: Differential Syncope: Valvular disease, hypertrophic cardiomyopathy, pulmonary embolism, tamponade, tachycardia, bradycardia, [place], hypovolemia, hemorrhage, dissection, anemia, intracranial hemorrhage, seizure, hypoglycemia, carbon monoxide poisoning, this is not meant to be an all-inclusive list. Medical Decision Making - Medical Decision Making 58 male to ER for evaluation of coughing fit and acute bronchospasm. Patient symptoms are improved here in the ER he feels well and can be discharged home - Lab Data Result diagrams: 02/02/24 00:24 02/02/24 00:24 Lab Results 02/02/24 02/02/24 02/02/24 Range/Units 00:24 00:24 00:24 WBC 6.0 (3.8-10.6) k/uL RBC 4.72 (4.30-5.90) m/uL Hgb 14.3 (13.0-17.5) gm/dL Hct 42.6 (39.0-53.0) % MCV 90.1 (80.0-100.0) fL MCH 30.2 (25.0-35.0) pg MCHC 33.5 (31.0-37.0) g/dL RDW 12.9 (11.5-15.5) % Plt Count 231 (150-450) k/uL MPV 7.0 Neutrophils % 46 % Lymphocytes % 44 % Monocytes % 8 % Eosinophils % 0 % Basophils % 0 % Neutrophils # 2.7 (1.3-7.7) k/uL Lymphocytes # 2.6 (1.0-4.8) k/uL Monocytes # 0.5 (0-1.0) k/uL Eosinophils # 0.0 (0-0.7) k/uL Basophils # 0.0 (0-0.2) k/uL PT 9.9 L (10.0-12.5) sec INR 0.9 (<1.2) APTT 25.3 (22.0-30.0) sec Sodium 140 (137-145) mmol/L Potassium 3.4 L (3.5-5.1) mmol/L Chloride 105 (98-107) mmol/L Carbon Dioxide 21 L (22-30) mmol/L Anion Gap 14 mmol/L BUN 23 H (9-20) mg/dL Creatinine 1.07 (0.66-1.25) mg/dL Est GFR (CKD-EPI)AfAm 88 (>60 ml/min/1.73 sqM) Est GFR (CKD-EPI)NonAf 76 (>60 ml/min/1.73 sqM) Glucose 96 (74-99) mg/dL Lactic Ac Sepsis Rflx Plasma Lactic Acid Valdo (0.7-2.0) mmol/L Calcium 9.4 (8.4-10.2) mg/dL Magnesium 2.1 (1.6-2.3) mg/dL Total Bilirubin 0.5 (0.2-1.3) mg/dL AST 33 (17-59) U/L ALT 26 (4-49) U/L Alkaline Phosphatase 58 (38-126) U/L Troponin I (0.000-0.034) ng/mL NT-Pro-B Natriuret Pep 43 pg/mL Total Protein 7.3 (6.3-8.2) g/dL Albumin 4.3 (3.5-5.0) g/dL 02/02/24 02/02/24 02/02/24 Range/Units 00:24 00:24 01:25 WBC (3.8-10.6) k/uL RBC (4.30-5.90) m/uL Hgb (13.0-17.5) gm/dL Hct (39.0-53.0) % MCV (80.0-100.0) fL MCH (25.0-35.0) pg MCHC (31.0-37.0) g/dL RDW (11.5-15.5) % Plt Count (150-450) k/uL MPV Neutrophils % % Lymphocytes % % Monocytes % % Eosinophils % % Basophils % % Neutrophils # (1.3-7.7) k/uL Lymphocytes # (1.0-4.8) k/uL Monocytes # (0-1.0) k/uL Eosinophils # (0-0.7) k/uL Basophils # (0-0.2) k/uL PT (10.0-12.5) sec INR (<1.2) APTT (22.0-30.0) sec Sodium (137-145) mmol/L Potassium (3.5-5.1) mmol/L Chloride (98-107) mmol/L Carbon Dioxide (22-30) mmol/L Anion Gap mmol/L BUN (9-20) mg/dL Creatinine (0.66-1.25) mg/dL Est GFR (CKD-EPI)AfAm (>60 ml/min/1.73 sqM) Est GFR (CKD-EPI)NonAf (>60 ml/min/1.73 sqM) Glucose (74-99) mg/dL Lactic Ac Sepsis Rflx Y Plasma Lactic Acid Valdo 3.3 H* (0.7-2.0) mmol/L Calcium (8.4-10.2) mg/dL Magnesium (1.6-2.3) mg/dL Total Bilirubin (0.2-1.3) mg/dL AST (17-59) U/L ALT (4-49) U/L Alkaline Phosphatase (38-126) U/L Troponin I <0.012 (0.000-0.034) ng/mL NT-Pro-B Natriuret Pep pg/mL Total Protein (6.3-8.2) g/dL Albumin (3.5-5.0) g/dL - EKG Data -: EKG Interpreted by Me (EKG is sinus tachycardia 107 NV 193 QRS 123 QTc 403) - Radiology Data Radiology results: report reviewed (Chest x-ray is negative for acute disease), image reviewed Disposition Clinical Impression: Bronchospasm Disposition: HOME SELF-CARE Condition: Good Instructions (If sedation given, give patient instructions): Bronchospasm (ED) Prescriptions: Amoxic-Pot Clav 875-125Mg [Augmentin 875-125] 1 tab PO Q12HR #20 tablet Guaifenesin/Dextromethorphan [Guaifenesin-Dm 100-10 mg/5 ml] 5 ml PO Q6HR #120 ml guaiFENesin-Coden 100-10MG/5ML [Robitussin AC] 5 - 10 ml PO Q6H PRN 3 Days #120 ml PRN Reason: Cough Benzonatate [Tessalon Perles] 100 mg PO TID PRN #15 capsule PRN Reason: Cough Is patient prescribed a controlled substance at d/c from ED?: No Referrals: None,Stated [Primary Care Provider] - 1-2 days Time of Disposition: 01:45
[2024-02-02] MEDS: SODIUM CHLORIDE 0.9% 1,000 ML IV STA (00:12)
[2024-02-02] MEDS: SODIUM CHLORIDE 0.9% 500 ML 500 ML IV STA (00:12)
[2024-02-02] MEDS: DEXAMETHASONE SOD PHOSPHATE 10 MG/ML 1 ML VIAL IVP STA (00:15)
[2024-02-02] MEDS: HYDROmorphone 0.5 MG/0.5 ML SYRINGE IVP STA ×2 (00:18→00:19)
[2024-02-02] MEDS: RACEPINEPHRINE 2.25% NEB 0.5 ML NEBU INHALATION STA (00:25)
[2024-02-02 00:45] VITALS: RESP 18
[2024-02-02 01:06] LABS: ALT 26 U/L (4-49); AST 33 U/L (17-59); African American GFR (CKD) 88 (>60 ml/min/1.73 sqM); Albumin 4.3 g/dL (3.5-5.0); Alkaline Phosphatase 58 U/L (38-126); Anion Gap 14 mmol/L; Blood Urea Nitrogen 23 mg/dL (9-20); Calcium 9.4 mg/dL (8.4-10.2); Carbon Dioxide 21 mmol/L (22-30); Chloride 105 mmol/L (98-107); Glucose 96 mg/dL (74-99); Magnesium 2.1 mg/dL (1.6-2.3); Non-African American GFR(CKD) 76 (>60 ml/min/1.73 sqM); Potassium 3.4 mmol/L (3.5-5.1); Sodium 140 mmol/L (137-145); Total Bilirubin 0.5 mg/dL (0.2-1.3); Total Protein 7.3 g/dL (6.3-8.2)
[2024-02-02 01:12] LABS: INR 0.9 (<1.2); Partial Thromboplastin Time 25.3 sec (22.0-30.0); Prothrombin Time 9.9 sec (10.0-12.5)
[2024-02-02 01:15] LABS: NT-Pro-B-Type Natriuretic Pept 43 pg/mL
[2024-02-02 01:26] LABS: Basophils % (A) 0 %; Eosinophils % (A) 0 %; HCT 42.6 % (39.0-53.0); HGB 14.3 gm/dL (13.0-17.5); Lymphocytes # (A) 2.6 k/uL (1.0-4.8); Lymphocytes % (A) 44 %; MCH 30.2 pg (25.0-35.0); MCHC 33.5 g/dL (31.0-37.0); MCV 90.1 fL (80.0-100.0); Monocytes # (A) 0.5 k/uL (0-1.0); Monocytes % (A) 8 %; Neutrophils # (A) 2.7 k/uL (1.3-7.7); Neutrophils % (A) 46 %; Platelet Count 231 k/uL (150-450); RBC 4.72 m/uL (4.30-5.90); RDW 12.9 % (11.5-15.5)
--- NOTE | 2024-02-02 02:06 | XR ---
EXAM: XR Chest, 1 View CLINICAL HISTORY: ITS.REASON XR Reason: sob TECHNIQUE: Frontal view of the chest. COMPARISON: No relevant prior studies available. FINDINGS: Lungs: No consolidation or mass. Pleural space: No acute findings Heart: cardiomegaly. Bones/joints: No acute findings. IMPRESSION: No acute cardiopulmonary process.
[2024-02-02] MEDS: BENZONATATE 100 MG CAP PO STA (02:15)
[2024-02-02] MEDS: guaiFENesin-Coden 100-10MG/5ML 10 ML CUP PO STA (02:15)
[2024-02-02] MEDS: ONDANSETRON 4 MG/2 ML VIAL IVP STA (02:41)
[2024-02-02] MEDS: guaiFENesin-DM 100-10MG/5ML 10 ML CUP PO STA (02:43)
[2024-02-02] MEDS: AMOXIC-POT CLAV 875-125MG 1 EACH TAB PO STA (03:47)
[2024-02-02 04:16] VITALS: BP 127/83; PULSE 84
== END 2024-02-02 03:55 | disposition home or self-care (01) ==
LOC: EC 23:40
DX: J98.01 Acute bronchospasm (principal); R07.9 Chest pain, unspecified
CPT/HCPCS: 36415; 94640; 93005; 83880; 80053; 83605; 83735; 84484; 85025; 85610; 85730; 71045; 99285; 96374; 96375; 96361 ×3; J1100; J1170